=== PATIENT | male | born 1965 | race African-American/Black ===

== ENCOUNTER 2017-01-07 18:37 | Inpatient (IN) | payer MEDICAID ==
[~2017-01-07] VITALS: Ht 162.6 cm; Wt 81.2 kg
[~2017-01-07 18:37] MED LIST: ATEN-60 PO; CARI-316 PO; FER300LQ GT; GABA-497 PO; LANS30CA63 PO; METO-169 PO; PRE5T PO; SODB650T PO; TACR1CAP19 OR
[2017-01-07] MEDS ORDERED: KETOROLAC TROMETH 60MG/2ML VIAL IM ONE (20:45)
[2017-01-07] MEDS ORDERED: SODIUM CHLORIDE 0.9% 1,000 ML IV ONE (22:58)
[2017-01-07] MEDS: NALOXONE HCL 0.4 MG/ML VIAL IV ONE (23:00)
[2017-01-08 00:17] LABS: Basophils # (auto) 0 uL; Basophils % (auto) 0.2 % (0.0-2.0); Eosinophils # (auto) 0 uL; Eosinophils % (auto) 0.2 % (0.0-7.0); Hemoglobin 8.7 g/dL (13.5-17.5); Lymphocytes # (auto) 2.1 uL; Mean Corpuscular Hemoglobin 28.4 pg (28.0-32.0); Mean Corpuscular Hgb Conc. 32.2 g/dL (32.0-36.0); Mean Corpuscular Volume 88.2 fL (80.0-100.0); Mean Platelet Volume 7.9 fL (7.4-10.4); Monocytes # (auto) 1.3 uL; Monocytes % (auto) 7.1 % (0.0-12.0); Neutrophils # (auto) 14.2 uL; Neutrophils % (auto) 80.5 % (37.0-80.0); Platelet Count (auto) 305 10^3/uL (140-450); Red Cell Distribution Width 15.2 % (11.6-16.0); SUSPECT SEE PRINTOUT; White Blood Cell 17.6 10^3/uL (4.4-10.8)
[2017-01-08 00:29] LABS: INR 0.9 (0.9-1.15); Partial Thromboplastin Time 20.8 sec (22.64-33.71); Prothrombin Time 9.8 sec (9.37-12.3)
[2017-01-08 00:36] LABS: Albumin 2.6 g/dL (3.4-5.0); BUN/Creatinine Ratio 12.9; Calcium 9.7 mg/dL (8.5-10.1)
[2017-01-08 00:38] LABS: Bilirubin, Total 0.4 mg/dL (0.2-1.0); Total Protein 6.7 g/dL (6.4-8.2)
[2017-01-08 00:39] LABS: Potassium 5.6 mmol/L (3.5-5.1)
[2017-01-08] MEDS ORDERED: ONDANSETRON HCL 4 MG/2 ML VIAL IV PRN (02:00)
[2017-01-08] MEDS ORDERED: SODIUM POLYSTYRENE SULF 15GM/60ML SUSP PO ONE (02:00)
[2017-01-08] MEDS ORDERED: ACETAMINOPHEN 500 MG TAB PO PRN (02:00)
[2017-01-08] MEDS ORDERED: METOPROLOL TARTRATE 1MG/1ML-5ML VIAL IV ONE (02:00)
[2017-01-08 08:45] VITALS: BP 159/105
[2017-01-08 09:00] VITALS: BP 159/105
[2017-01-08] MEDS: predniSONE 20 MG TAB PO SCH (09:43)
[2017-01-08] MEDS: METOPROLOL SUCCINATE XL 50 MG TAB PO SCH (09:44)
[2017-01-08] MEDS ORDERED: ATENOLOL 50 MG TAB PO SCH (10:00)
[2017-01-08 11:28] LABS: Basophils # (auto) 0 uL; Basophils % (auto) 0.2 % (0.0-2.0); CONDITION Y; DEFINITIVE SEE PRINTOUT; Eosinophils # (auto) 0.1 uL; Lymphocytes # (auto) 2.5 uL; Lymphocytes % (auto) 16.3 % (10.0-50.0); Mean Corpuscular Hgb Conc. 32.2 g/dL (32.0-36.0); Mean Corpuscular Volume 90.3 fL (80.0-100.0); Mean Platelet Volume 7.6 fL (7.4-10.4); Monocytes # (auto) 2.1 uL; Neutrophils # (auto) 10.4 uL; Neutrophils % (auto) 68.5 % (37.0-80.0); Platelet Count (auto) 321 10^3/uL (140-450); White Blood Cell 15.1 10^3/uL (4.4-10.8)
[2017-01-08] MEDS ORDERED: PRE5T PO (11:42)
[2017-01-08] MEDS ORDERED: NAPR-604 PO (11:44)
[2017-01-08 11:46] LABS: Albumin 2.6 g/dL (3.4-5.0); BUN/Creatinine Ratio 12.6; Calcium 9.7 mg/dL (8.5-10.1); Potassium 5.1 mmol/L (3.5-5.1)
[2017-01-08] MEDS ORDERED: TIZA4CAP7 PO (11:46)
[2017-01-08 11:48] LABS: Bilirubin, Total 0.4 mg/dL (0.2-1.0); Total Protein 6.7 g/dL (6.4-8.2)
[2017-01-08] MEDS: SOD CHL 0.45% 1,000 ML IV SCH (11:58)
[2017-01-08 13:00] VITALS: BP 147/98
[2017-01-08 17:00] VITALS: BP 146/107
[2017-01-08] MEDS: GABAPENTIN 300 MG CAP PO SCH (21:20)
[2017-01-08 21:47] VITALS: BP 138/99
[2017-01-09] VITALS (7 sets, daily range): BP systolic 126–155; BP diastolic 85–101
[2017-01-09 04:34] LABS: Urine RBC None Seen /hpf (0 - 3)
[2017-01-09 04:39] LABS: Urine Bilirubin Negative (Negative); Urine Blood Negative /uL (Negative); Urine Color Yellow (Yellow); Urine Glucose Normal (Normal); Urine Ketone Negative (Negative); Urine Nitrite Negative (Negative); Urine Urobilinogen Normal (Negative); Urine pH 7.5 (5.0-8.0)
[2017-01-09] MEDS: SOD CHL 0.45% 1,000 ML IV SCH ×3 (05:02→16:07)
[2017-01-09 06:24] LABS: Basophils # (auto) 0 uL; Basophils % (auto) 0.2 % (0.0-2.0); CONDITION Y; DEFINITIVE SEE PRINTOUT; Eosinophils # (auto) 0 uL; Eosinophils % (auto) 0.3 % (0.0-7.0); Hematocrit 22.6 % (41.0-53.0); Hemoglobin 7.7 g/dL (13.5-17.5); Lymphocytes # (auto) 1.8 uL; Lymphocytes % (auto) 14.4 % (10.0-50.0); Mean Corpuscular Hemoglobin 29.8 pg (28.0-32.0); Mean Corpuscular Hgb Conc. 34.2 g/dL (32.0-36.0); Mean Corpuscular Volume 87.3 fL (80.0-100.0); Mean Platelet Volume 7.3 fL (7.4-10.4); Monocytes # (auto) 1.3 uL; Monocytes % (auto) 9.8 % (0.0-12.0); Neutrophils # (auto) 9.6 uL; Neutrophils % (auto) 75.3 % (37.0-80.0); Platelet Count (auto) 336 10^3/uL (140-450); Red Cell Distribution Width 16.3 % (11.6-16.0); White Blood Cell 12.7 10^3/uL (4.4-10.8)
[2017-01-09 06:56] LABS: Albumin 2.3 g/dL (3.4-5.0); BUN/Creatinine Ratio 12.6; Calcium 9.4 mg/dL (8.5-10.1)
[2017-01-09 06:58] LABS: Bilirubin, Total 0.3 mg/dL (0.2-1.0); Total Protein 5.9 g/dL (6.4-8.2)
[2017-01-09] MEDS: HYDROcodone-ACET 5/325MG TAB PO PRN (07:10)
[2017-01-09 07:18] LABS: Potassium 5.6 mmol/L (3.5-5.1)
[2017-01-09] MEDS: MORPHINE SULF INJ 2 MG/ML SYRINGE 1ML IV PRN ×3 (08:57→20:34)
[2017-01-09] MEDS ORDERED: SODIUM POLYSTYRENE SULF 15GM/60ML SUSP PO ONE (10:15)
[2017-01-09] MEDS: amLODIPine BESYLATE 5 MG TAB PO SCH (10:29)
[2017-01-09] MEDS: METOPROLOL SUCCINATE XL 50 MG TAB PO SCH (10:29)
[2017-01-09] MEDS: TACROLIMUS 1 MG CAP PO SCH ×2 (10:37→22:09)
[2017-01-09] MEDS: predniSONE 20 MG TAB PO SCH (10:37)
[2017-01-09] MEDS: GABAPENTIN 300 MG CAP PO SCH (22:09)
[2017-01-10] VITALS (7 sets, daily range): BP systolic 110–145; BP diastolic 76–106
[2017-01-10] MEDS: MORPHINE SULF INJ 2 MG/ML SYRINGE 1ML IV PRN ×3 (01:33→16:54)
[2017-01-10] MEDS: SOD CHL 0.45% 1,000 ML IV SCH ×3 (04:58→23:20)
[2017-01-10 06:15] LABS: Albumin 2.5 g/dL (3.4-5.0); Bilirubin, Total 0.3 mg/dL (0.2-1.0); Calcium 9.8 mg/dL (8.5-10.1); Phosphorus 2.7 mg/dL (2.5-4.90); Potassium 4.6 mmol/L (3.5-5.1); Total Protein 6.3 g/dL (6.4-8.2)
[2017-01-10] MEDS: amLODIPine BESYLATE 5 MG TAB PO SCH (10:46)
[2017-01-10] MEDS: predniSONE 20 MG TAB PO SCH (10:46)
[2017-01-10] MEDS: METOPROLOL SUCCINATE XL 50 MG TAB PO SCH (10:47)
[2017-01-10] MEDS: TACROLIMUS 1 MG CAP PO SCH ×2 (10:47→21:37)
[2017-01-10] MEDS: HYDROcodone-ACET 5/325MG TAB PO PRN ×2 (14:46→21:37)
[2017-01-10] MEDS: GABAPENTIN 300 MG CAP PO SCH (21:36)
[2017-01-11] MEDS: MORPHINE SULF INJ 2 MG/ML SYRINGE 1ML IV PRN ×4 (00:41→20:14)
[2017-01-11 06:56] LABS: Basophils # (auto) 0 uL; Basophils % (auto) 0.3 % (0.0-2.0); CONDITION Y; DEFINITIVE SEE PRINTOUT; Eosinophils # (auto) 0 uL; Eosinophils % (auto) 0.2 % (0.0-7.0); Hematocrit 24.7 % (41.0-53.0); Hemoglobin 8.1 g/dL (13.5-17.5); Lymphocytes # (auto) 2.4 uL; Lymphocytes % (auto) 13.7 % (10.0-50.0); Mean Corpuscular Hemoglobin 28.5 pg (28.0-32.0); Mean Corpuscular Hgb Conc. 32.7 g/dL (32.0-36.0); Mean Platelet Volume 7.5 fL (7.4-10.4); Monocytes # (auto) 1.4 uL; Monocytes % (auto) 7.8 % (0.0-12.0); Neutrophils # (auto) 13.8 uL; Platelet Count (auto) 405 10^3/uL (140-450); Red Cell Distribution Width 16.6 % (11.6-16.0); White Blood Cell 17.7 10^3/uL (4.4-10.8)
[2017-01-11 07:24] LABS: Albumin 2.7 g/dL (3.4-5.0); BUN/Creatinine Ratio 13.6; Bilirubin, Total 0.3 mg/dL (0.2-1.0); Calcium 9.5 mg/dL (8.5-10.1); Total Protein 6.4 g/dL (6.4-8.2)
[2017-01-11 08:00] VITALS: BP 132/102
[2017-01-11] MEDS: SOD CHL 0.45% 1,000 ML IV SCH (08:30)
[2017-01-11 08:45] VITALS: BP 132/102
[2017-01-11] MEDS ORDERED: HYDROcodone-ACET 5/325MG TAB PO PRN (10:00)
[2017-01-11] MEDS: PANTOPRAZOLE 40 MG/10 ML VIAL IV SCH (10:08)
[2017-01-11] MEDS: TACROLIMUS 1 MG CAP PO SCH ×2 (10:08→20:14)
[2017-01-11] MEDS: amLODIPine BESYLATE 5 MG TAB PO SCH (10:08)
[2017-01-11] MEDS: predniSONE 20 MG TAB PO SCH (10:09)
[2017-01-11] MEDS: METOPROLOL SUCCINATE XL 50 MG TAB PO SCH (10:09)
[2017-01-11 13:00] VITALS: BP 117/82
[2017-01-11 16:55] VITALS: BP 98/70
[2017-01-11] MEDS: GABAPENTIN 300 MG CAP PO SCH (20:14)
[2017-01-11 22:56] VITALS: BP 109/76
[2017-01-12] MEDS: HYDROcodone-ACET 5/325MG TAB PO PRN ×2 (02:49→09:37)
[2017-01-12 05:49] VITALS: BP 102/79
[2017-01-12 06:50] LABS: CONDITION Y; DEFINITIVE SEE PRINTOUT; Hemoglobin 8.6 g/dL (13.5-17.5); Mean Corpuscular Hemoglobin 28.9 pg (28.0-32.0); Mean Corpuscular Hgb Conc. 33.3 g/dL (32.0-36.0); Mean Corpuscular Volume 86.8 fL (80.0-100.0); Mean Platelet Volume 7.6 fL (7.4-10.4); Platelet Count (auto) 484 10^3/uL (140-450); SUSPECT SEE PRINTOUT; White Blood Cell 21.9 10^3/uL (4.4-10.8)
[2017-01-12 06:58] LABS: Metamyelocytes % 0; Myelocytes % 0; Promyelocytes % 0; Reactive Lymphocytes 0
[2017-01-12 07:01] LABS: Albumin 2.8 g/dL (3.4-5.0); BUN/Creatinine Ratio 15.5; Calcium 9.9 mg/dL (8.5-10.1); Potassium 5.3 mmol/L (3.5-5.1)
[2017-01-12 07:04] LABS: Bilirubin, Total 0.3 mg/dL (0.2-1.0); Total Protein 6.5 g/dL (6.4-8.2)
[2017-01-12 07:06] LABS: Vitamin D-2 25-Hydroxy 7.2 ng/mL (.)
[2017-01-12 07:41] LABS: Platelet Estimate Increased
[2017-01-12 09:00] VITALS: BP 113/70
[2017-01-12] MEDS: predniSONE 20 MG TAB PO SCH (09:59)
[2017-01-12] MEDS: amLODIPine BESYLATE 5 MG TAB PO SCH (09:59)
[2017-01-12] MEDS: TACROLIMUS 1 MG CAP PO SCH (09:59)
[2017-01-12] MEDS: PANTOPRAZOLE 40 MG/10 ML VIAL IV SCH (10:00)
[2017-01-12] MEDS: METOPROLOL SUCCINATE XL 50 MG TAB PO SCH (10:00)
[2017-01-12 11:13] VITALS: BP 113/70
== END 2017-01-12 13:45 | disposition home or self-care (01) | DRG 347 ==
LOC: EDUNIT# 18:37 → EDBD 18:37 → ER 18:38 → TELE 18:39 → CENTRAL 01-08 08:19
PROVIDERS: ADMIT Nurse Practitioner Family; ATTEND Family Medicine
DX: S32.018A Other fracture of first lumbar vertebra, initial encounter for closed fracture (principal); E43 Unspecified severe protein-calorie malnutrition; E87.0 Hyperosmolality and hypernatremia; N18.6 End stage renal disease; N17.9 Acute kidney failure, unspecified; I12.0 Hypertensive chronic kidney disease with stage 5 chronic kidney disease or end stage renal disease; S22.078A Other fracture of T9-T10 vertebra, initial encounter for closed fracture; E87.5 Hyperkalemia; S22.088A Other fracture of T11-T12 vertebra, initial encounter for closed fracture; E87.6 Hypokalemia; D63.1 Anemia in chronic kidney disease; G89.29 Other chronic pain; E78.5 Hyperlipidemia, unspecified; K57.90 Diverticulosis of intestine, part unspecified, without perforation or abscess without bleeding; Z79.899 Other long term (current) drug therapy; Z87.11 Personal history of peptic ulcer disease; Z94.0 Kidney transplant status; Z88.8 Allergy status to other drugs, medicaments and biological substances; Z90.49 Acquired absence of other specified parts of digestive tract; Z71.89 Other specified counseling; Z68.30 Body mass index [BMI] 30.0-30.9, adult; V98.8XXA Other specified transport accidents, initial encounter; Y93.89 Activity, other specified; Y92.89 Other specified places as the place of occurrence of the external cause; Y99.8 Other external cause status
CPT/HCPCS: 36415; 70450; 71010; 72040; 72070; 72110; 80053; 80061; 80197; 80307; 81001; 82270; 82306; 82570; 82728; 83540; 83550; 83970; 84100; 84300; 84550; 85007; 85025; 85027; 85610; 85730; 87081; 87493; 96361; 96372; 96374; 96375; C9113; J1885; J7507

== ENCOUNTER 2017-05-22 14:28 | Inpatient (IN) | payer MEDICAID ==
[~2017-05-22] VITALS: Ht 165.1 cm; Wt 67.9 kg
[~2017-05-22 14:28] MED LIST changes: -GABA-497 PO; +GABA300C10 PO; +NAPR375T27 PO; +TIZA4CAP7 PO
[2017-05-22] MEDS ORDERED: SODIUM CHLORIDE 0.9% 1,000 ML IV ONE ×2 (18:24)
[2017-05-22] MEDS ORDERED: PIPERACILLIN-TAZOB 3.375GM 50 ML IV ONE (18:30)
[2017-05-22 18:55] LABS: Basophils # (auto) 0 uL; Basophils % (auto) 0.2 % (0.0-2.0); Eosinophils # (auto) 0.1 uL; Monocytes # (auto) 1.4 uL; Neutrophils # (auto) 7.4 uL; Nucleated Red Blood Cells % 0.1 %
[2017-05-22 18:56] LABS: Eosinophils % (auto) 1.2 % (0.0-7.0); Hematocrit 33.5 % (41.0-53.0); Hemoglobin 10.3 g/dL (13.5-17.5); Lymphocytes # (auto) 1.7 uL; Lymphocytes % (auto) 15.9 % (10.0-50.0); Mean Corpuscular Hemoglobin 25.9 pg (28.0-32.0); Mean Corpuscular Hgb Conc. 30.6 g/dL (32.0-36.0); Mean Corpuscular Volume 84.4 fL (80.0-100.0); Monocytes % (auto) 13.3 % (0.0-12.0); Neutrophils % (auto) 69.4 % (37.0-80.0); Platelet Count (auto) 434 10^3/uL (140-450); Red Blood Cells 3.96 10^6/uL (4.5-5.90); White Blood Cell 10.7 10^3/uL (4.4-10.8)
[2017-05-22] MEDS: SODIUM CHLORIDE 0.9% 1,000 ML IV SCH (19:01)
[2017-05-22 19:02] LABS: Red Cell Distribution Width 20.2 % (11.8-14.3)
[2017-05-22] MEDS ORDERED: MORPHINE SULF INJ 2 MG/ML SYRINGE 1ML IV PRN (19:15)
[2017-05-22] MEDS ORDERED: ONDANSETRON HCL 4 MG/2 ML VIAL IV PRN (19:15)
[2017-05-22] MEDS ORDERED: TEMAZEPAM 15 MG CAP PO PRN (19:15)
[2017-05-22] MEDS ORDERED: HYDROcodone-ACET 5/325MG TAB PO PRN (19:15)
[2017-05-22] MEDS ORDERED: ACETAMINOPHEN 325 MG TAB PO PRN (19:15)
[2017-05-22] MEDS ORDERED: NITROGLYCERIN 0.4 MG SL TAB SL PRN (19:15)
[2017-05-22] MEDS ORDERED: DOCUSATE SOD 100 MG CAP PO PRN (19:15)
[2017-05-22 19:26] LABS: Anion Gap 6 (5-15); Carbon Dioxide 27 mmol/L (21-32); Chloride 108 mmol/L (98-107); Potassium 5.5 mmol/L (3.5-5.1); Sodium 141 mmol/L (136-145)
[2017-05-22 19:27] LABS: Alanine Aminotransferase 10 U/L (16-61); Alkaline Phosphatase 165 U/L (45-117); Aspartate Aminotransferase 7 U/L (15-37); BUN/Creatinine Ratio 9.7; Bilirubin, Total 0.4 mg/dL (0.2-1.0); Blood Urea Nitrogen 39 mg/dL (7-18); GFR African American 20 mL/min; GFR Non-African American 17 mL/min; Glucose 88 mg/dL (74-106); Total Protein 7.4 g/dL (6.4-8.2)
[2017-05-22 19:28] LABS: Albumin 2.6 g/dL (3.4-5.0); Lipase 1094 U/L (73-393)
[2017-05-22] MEDS ORDERED: NAPROXEN 500 MG TAB PO PRN (19:30)
[2017-05-22] MEDS ORDERED: SODIUM POLYSTYRENE SULF 15GM/60ML SUSP PO ONE (19:45)
[2017-05-22] MEDS ORDERED: ALPRAZolam 0.25 MG TAB PO PRN (19:45)
[2017-05-22] MEDS: MORPHINE SULF INJ 2 MG/ML SYRINGE 1ML IV PRN (20:00)
[2017-05-22] MEDS ORDERED: cloNIDine HCL 0.1 MG TAB PO PRN (20:00)
[2017-05-22 21:00] VITALS: BP 148/93
[2017-05-22 21:31] VITALS: BP 148/93
[2017-05-22] MEDS: TIZANIDINE 4MG PO SCH (22:00)
[2017-05-22] MEDS ORDERED: METOPROLOL SUCCINATE XL 50 MG TAB PO SCH (22:00)
[2017-05-22] MEDS: PANTOPRAZOLE 40 MG/10 ML VIAL IV SCH (22:17)
[2017-05-22] MEDS: SODIUM BICARBONATE 650 MG TAB PO SCH (22:17)
[2017-05-22] MEDS: METOPROLOL TARTRATE 50 MG TAB PO SCH (22:37)
[2017-05-22] MEDS: TACROLIMUS 1 MG CAP PO SCH (22:38)
[2017-05-22] MEDS: GABAPENTIN 300 MG CAP PO SCH (22:38)
[2017-05-22] MEDS: FAMOTIDINE 20 MG TAB PO SCH (22:38)
[2017-05-23 04:33] VITALS: BP 130/89
[2017-05-23] MEDS ORDERED: RANI-229 PO (05:06)
[2017-05-23] MEDS ORDERED: PANT1INJ3 PO (05:06)
[2017-05-23 05:14] LABS: Urine WBC None Seen /hpf (0 - 3)
[2017-05-23 05:29] LABS: Urine Bacteria NONE SEEN /hpf (None Seen); Urine Blood Negative /uL (Negative); Urine Specific Gravity 1.013 (1.001-1.035)
[2017-05-23] MEDS: TIZANIDINE 4MG PO SCH ×3 (06:00→21:33)
[2017-05-23 06:45] LABS: Basophils # (auto) 0 uL; Basophils % (auto) 0.5 % (0.0-2.0); Eosinophils # (auto) 0.3 uL; Hemoglobin 10.4 g/dL (13.5-17.5); Lymphocytes # (auto) 1.5 uL; Lymphocytes % (auto) 17.1 % (10.0-50.0); Monocytes # (auto) 1.3 uL
[2017-05-23 06:47] LABS: Eosinophils % (auto) 3.4 % (0.0-7.0); Hematocrit 33.6 % (41.0-53.0); Mean Corpuscular Hemoglobin 26.2 pg (28.0-32.0); Mean Corpuscular Hgb Conc. 31.1 g/dL (32.0-36.0); Mean Corpuscular Volume 84.3 fL (80.0-100.0); Monocytes % (auto) 14.4 % (0.0-12.0); Neutrophils # (auto) 5.7 uL; Neutrophils % (auto) 64.6 % (37.0-80.0); Platelet Count (auto) 425 10^3/uL (140-450); Red Blood Cells 3.98 10^6/uL (4.5-5.90); Red Cell Distribution Width 19.8 % (11.8-14.3); White Blood Cell 8.9 10^3/uL (4.4-10.8)
[2017-05-23 06:55] LABS: INR 0.98 (0.9-1.15); Prothrombin Time 10.7 sec (9.37-12.3)
[2017-05-23 07:21] LABS: Albumin 2.6 g/dL (3.4-5.0); BUN/Creatinine Ratio 9.7; Bilirubin, Total 0.5 mg/dL (0.2-1.0); Calcium 10.2 mg/dL (8.5-10.1); Potassium 5.2 mmol/L (3.5-5.1); Total Protein 6.9 g/dL (6.4-8.2)
[2017-05-23] MEDS: SODIUM CHLORIDE 0.9% 1,000 ML IV SCH ×2 (07:41→21:44)
[2017-05-23] MEDS: MORPHINE SULF INJ 2 MG/ML SYRINGE 1ML IV PRN ×2 (07:41→21:52)
[2017-05-23 08:00] VITALS: BP 158/82
[2017-05-23] MEDS: FERROUS SULFATE 325 MG TAB PO SCH ×3 (08:32→18:06)
[2017-05-23] MEDS: BOOST PLUS 8 ounce PO SCH ×3 (08:32→18:06)
[2017-05-23] MEDS: predniSONE 20 MG TAB PO SCH (08:32)
[2017-05-23] MEDS: SODIUM BICARBONATE 650 MG TAB PO SCH ×2 (08:33→21:43)
[2017-05-23] MEDS: MULTIPLE VITAMIN TAB PO SCH (08:33)
[2017-05-23] MEDS: FAMOTIDINE 20 MG TAB PO SCH ×2 (08:33→21:43)
[2017-05-23] MEDS: TACROLIMUS 1 MG CAP PO SCH ×2 (08:33→21:43)
[2017-05-23] MEDS: PANTOPRAZOLE 40 MG/10 ML VIAL IV SCH ×2 (08:45→21:42)
[2017-05-23] MEDS: METOPROLOL TARTRATE 50 MG TAB PO SCH ×2 (08:45→21:44)
[2017-05-23 09:41] VITALS: BP 158/97
[2017-05-23 13:00] VITALS: BP 155/110
[2017-05-23 16:57] VITALS: BP 144/96
[2017-05-23] MEDS: GABAPENTIN 300 MG CAP PO SCH (21:43)
[2017-05-23 22:00] VITALS: BP 120/83
[2017-05-24] MEDS: TIZANIDINE 4MG PO SCH ×3 (04:49→21:23)
[2017-05-24 05:00] VITALS: BP 122/90
[2017-05-24 07:30] VITALS: BP 158/97
[2017-05-24 09:00] VITALS: BP 153/103
[2017-05-24 10:26] LABS: Basophils # (auto) 0 uL; Eosinophils # (auto) 0.2 uL; Hemoglobin 11.2 g/dL (13.5-17.5)
[2017-05-24 10:28] LABS: Basophils % (auto) 0.2 % (0.0-2.0); Eosinophils % (auto) 1.4 % (0.0-7.0); Hematocrit 36.6 % (41.0-53.0); Lymphocytes # (auto) 1.8 uL; Lymphocytes % (auto) 14.8 % (10.0-50.0); Mean Corpuscular Hemoglobin 25.9 pg (28.0-32.0); Mean Corpuscular Hgb Conc. 30.4 g/dL (32.0-36.0); Monocytes % (auto) 8.4 % (0.0-12.0); Neutrophils # (auto) 8.9 uL; Neutrophils % (auto) 75.2 % (37.0-80.0); Platelet Count (auto) 482 10^3/uL (140-450); Red Blood Cells 4.31 10^6/uL (4.5-5.90); Red Cell Distribution Width 19.6 % (11.8-14.3); White Blood Cell 11.8 10^3/uL (4.4-10.8)
[2017-05-24 10:54] LABS: BUN/Creatinine Ratio 8.7; Calcium 10.3 mg/dL (8.5-10.1); Potassium 5.3 mmol/L (3.5-5.1)
[2017-05-24 10:55] LABS: Albumin 2.6 g/dL (3.4-5.0); Bilirubin, Total 0.3 mg/dL (0.2-1.0); Total Protein 7.1 g/dL (6.4-8.2)
[2017-05-24] MEDS: METOPROLOL TARTRATE 50 MG TAB PO SCH ×2 (11:11→21:23)
[2017-05-24] MEDS: predniSONE 20 MG TAB PO SCH (11:11)
[2017-05-24] MEDS: SODIUM BICARBONATE 650 MG TAB PO SCH ×2 (11:11→21:23)
[2017-05-24] MEDS: BOOST PLUS 8 ounce PO SCH ×3 (11:12→18:00)
[2017-05-24] MEDS: MULTIPLE VITAMIN TAB PO SCH (11:12)
[2017-05-24] MEDS: FAMOTIDINE 20 MG TAB PO SCH ×2 (11:12→21:23)
[2017-05-24] MEDS: PANTOPRAZOLE 40 MG/10 ML VIAL IV SCH ×2 (11:12→21:22)
[2017-05-24] MEDS: FERROUS SULFATE 325 MG TAB PO SCH ×3 (11:31→18:00)
[2017-05-24] MEDS: TACROLIMUS 1 MG CAP PO SCH ×2 (11:31→21:23)
[2017-05-24 14:06] VITALS: BP 148/91
[2017-05-24 17:00] VITALS: BP 151/102
[2017-05-24] MEDS: MORPHINE SULF INJ 2 MG/ML SYRINGE 1ML IV PRN (20:46)
[2017-05-24] MEDS: SODIUM CHLORIDE 0.9% 1,000 ML IV SCH (20:46)
[2017-05-24] MEDS: GABAPENTIN 300 MG CAP PO SCH (21:22)
[2017-05-24 22:02] VITALS: BP 133/101
[2017-05-25 05:13] VITALS: BP 142/87
[2017-05-25] MEDS: TIZANIDINE 4MG PO SCH (06:00)
[2017-05-25 06:34] LABS: Basophils # (auto) 0 uL; Basophils % (auto) 0.2 % (0.0-2.0); Eosinophils # (auto) 0.1 uL; Eosinophils % (auto) 0.6 % (0.0-7.0); Lymphocytes % (auto) 18.9 % (10.0-50.0); Monocytes # (auto) 0.8 uL; Monocytes % (auto) 7.3 % (0.0-12.0); Neutrophils # (auto) 7.7 uL
[2017-05-25 06:38] LABS: Hematocrit 33.3 % (41.0-53.0); Hemoglobin 10.3 g/dL (13.5-17.5); Mean Corpuscular Hemoglobin 26.3 pg (28.0-32.0); Mean Corpuscular Hgb Conc. 30.9 g/dL (32.0-36.0); Platelet Count (auto) 481 10^3/uL (140-450); Red Blood Cells 3.92 10^6/uL (4.5-5.90); Red Cell Distribution Width 19.6 % (11.8-14.3); White Blood Cell 10.6 10^3/uL (4.4-10.8)
[2017-05-25 06:53] LABS: Albumin 2.4 g/dL (3.4-5.0); BUN/Creatinine Ratio 7.7; Bilirubin, Total 0.4 mg/dL (0.2-1.0); Calcium 9.5 mg/dL (8.5-10.1); Total Protein 6.5 g/dL (6.4-8.2)
[2017-05-25 07:04] LABS: Potassium 5.6 mmol/L (3.5-5.1)
[2017-05-25] MEDS: PANTOPRAZOLE 40 MG/10 ML VIAL IV SCH (08:50)
[2017-05-25] MEDS: TACROLIMUS 1 MG CAP PO SCH (08:51)
[2017-05-25] MEDS: predniSONE 20 MG TAB PO SCH (08:51)
[2017-05-25] MEDS: MULTIPLE VITAMIN TAB PO SCH (08:52)
[2017-05-25] MEDS: FERROUS SULFATE 325 MG TAB PO SCH (08:52)
[2017-05-25] MEDS: BOOST PLUS 8 ounce PO SCH (08:52)
[2017-05-25] MEDS: SODIUM BICARBONATE 650 MG TAB PO SCH (08:52)
[2017-05-25] MEDS: FAMOTIDINE 20 MG TAB PO SCH (08:52)
[2017-05-25] MEDS: METOPROLOL TARTRATE 50 MG TAB PO SCH (08:52)
[2017-05-25 09:00] VITALS: BP 161/112
[2017-05-25 11:21] VITALS: BP 153/95
[2017-05-25 11:45] VITALS: BP 153/95
== END 2017-05-25 13:15 | disposition home or self-care (01) | DRG 470 ==
LOC: ER 14:28 → WEST WING 14:29 → TELE-WESTW 05-24 00:02
PROVIDERS: ADMIT Internal Medicine; ATTEND Internal Medicine
DX: I12.0 Hypertensive chronic kidney disease with stage 5 chronic kidney disease or end stage renal disease (principal); E43 Unspecified severe protein-calorie malnutrition; N17.9 Acute kidney failure, unspecified; K86.3 Pseudocyst of pancreas; K85.90 Acute pancreatitis without necrosis or infection, unspecified; N18.6 End stage renal disease; Z94.0 Kidney transplant status; E87.5 Hyperkalemia; K86.89 Other specified diseases of pancreas; K57.30 Diverticulosis of large intestine without perforation or abscess without bleeding; D63.1 Anemia in chronic kidney disease; E78.5 Hyperlipidemia, unspecified; G89.29 Other chronic pain; K27.9 Peptic ulcer, site unspecified, unspecified as acute or chronic, without hemorrhage or perforation; Z82.3 Family history of stroke; Z82.49 Family history of ischemic heart disease and other diseases of the circulatory system; Z87.11 Personal history of peptic ulcer disease; Z88.8 Allergy status to other drugs, medicaments and biological substances; Z90.49 Acquired absence of other specified parts of digestive tract; Z68.24 Body mass index [BMI] 24.0-24.9, adult
CPT/HCPCS: 36415; 74176; 80053; 81001; 82150; 83605; 83690; 84484; 85025; 85610; 87040; C9113; J2405; J2543; J7507

== ENCOUNTER 2017-07-27 12:30 | Inpatient (IN) | payer MEDICAID ==
[~2017-07-27] VITALS: Ht 162.6 cm; Wt 61.5 kg
[~2017-07-27 12:30] MED LIST changes: -CARI-316 PO; -LANS30CA63 PO; +PANT1INJ3 PO; +RANI-229 PO
[2017-07-27 13:33] LABS: Basophils # (auto) 0.1 uL; Eosinophils # (auto) 0.6 uL; Lymphocytes # (auto) 2.6 uL; Monocytes # (auto) 2.2 uL; Monocytes % (auto) 12.4 % (0.0-12.0)
[2017-07-27 13:36] LABS: Basophils % (auto) 0.6 % (0.0-2.0); Eosinophils % (auto) 3.4 % (0.0-7.0); Hematocrit 28.4 % (41.0-53.0); Hemoglobin 8.8 g/dL (13.5-17.5); Lymphocytes % (auto) 14.9 % (10.0-50.0); Mean Corpuscular Hemoglobin 25.3 pg (28.0-32.0); Mean Corpuscular Hgb Conc. 31.1 g/dL (32.0-36.0); Mean Corpuscular Volume 81.4 fL (80.0-100.0); Neutrophils % (auto) 68.7 % (37.0-80.0); Platelet Count (auto) 613 10^3/uL (140-450); Red Blood Cells 3.49 10^6/uL (4.5-5.90); Red Cell Distribution Width 22.5 % (11.8-14.3); White Blood Cell 17.5 10^3/uL (4.4-10.8)
[2017-07-27 13:45] LABS: Albumin 2.9 g/dL (3.4-5.0); BUN/Creatinine Ratio 12.2; Calcium 10.6 mg/dL (8.5-10.1); Potassium 4.3 mmol/L (3.5-5.1)
[2017-07-27 13:48] LABS: Bilirubin, Total 0.8 mg/dL (0.2-1.0); Total Protein 7.5 g/dL (6.4-8.2)
[2017-07-27 13:52] LABS: Urine Bacteria NONE SEEN /hpf (None Seen); Urine Blood Negative /uL (Negative); Urine Specific Gravity 1.012 (1.001-1.035); Urine WBC 1 /hpf (0 - 3)
[2017-07-27] MEDS ORDERED: SODIUM CHLORIDE 0.9% 500 ML IVB ONE (15:40)
[2017-07-27] MEDS ORDERED: PANTOPRAZOLE 40 MG/10 ML VIAL IV STA (15:40)
[2017-07-27] MEDS ORDERED: ONDANSETRON HCL 4 MG/2 ML VIAL IV ONE (15:45)
[2017-07-27] MEDS ORDERED: MORPHINE SULFATE 4 MG/ML SYR/VIAL IV ONE (15:45)
[2017-07-27] MEDS: SODIUM CHLORIDE 0.9% 1,000 ML IV SCH ×2 (17:17→23:57)
[2017-07-27] MEDS ORDERED: LACTULOSE 20Gm/30ML SOLN PO PRN (17:30)
[2017-07-27] MEDS ORDERED: NITROGLYCERIN 0.4 MG SL TAB SL PRN (17:30)
[2017-07-27] MEDS ORDERED: PROMETHAZINE HCL 25 MG/ML 1ML IV PRN (17:30)
[2017-07-27] MEDS ORDERED: cefTRIAXone 1GM/10ml IVPUSH 10 ML IV ONE (17:30)
[2017-07-27] MEDS ORDERED: MORPHINE SULFATE 4 MG/ML SYR/VIAL IV PRN ×2 (17:30)
[2017-07-27] MEDS ORDERED: LORazepam 2MG/ML-1ML VIAL IV PRN (17:30)
[2017-07-27] MEDS ORDERED: PANTOPRAZOLE 40 MG/10 ML VIAL IV ONE (17:30)
[2017-07-27 18:45] LABS: Hematocrit 28.1 % (41.0-53.0); Hemoglobin 8.6 g/dL (13.5-17.5)
[2017-07-27 22:00] VITALS: BP 127/88
[2017-07-27] MEDS: metroNIDAZOLE 500MG/100ML 100 ML IV SCH (22:51)
[2017-07-27] MEDS: MORPHINE SULFATE 4 MG/ML SYR/VIAL IV PRN (22:52)
[2017-07-28 00:59] LABS: Hematocrit 27.3 % (41.0-53.0); Hemoglobin 8.3 g/dL (13.5-17.5)
[2017-07-28] MEDS: MORPHINE SULFATE 4 MG/ML SYR/VIAL IV PRN ×2 (03:10→22:37)
[2017-07-28] MEDS: metroNIDAZOLE 500MG/100ML 100 ML IV SCH (05:11)
[2017-07-28 05:30] VITALS: BP 122/83
[2017-07-28 05:43] LABS: Eosinophils # (auto) 0.3 uL; Platelet Count (auto) 548 10^3/uL (140-450)
[2017-07-28 05:46] LABS: Basophils # (auto) 0 uL; Basophils % (auto) 0.2 % (0.0-2.0); Eosinophils % (auto) 1.9 % (0.0-7.0); Hematocrit 26.3 % (41.0-53.0); Hemoglobin 8.2 g/dL (13.5-17.5); Lymphocytes # (auto) 1.8 uL; Lymphocytes % (auto) 12.6 % (10.0-50.0); Mean Corpuscular Hemoglobin 25.7 pg (28.0-32.0); Mean Corpuscular Hgb Conc. 31.2 g/dL (32.0-36.0); Mean Corpuscular Volume 82.3 fL (80.0-100.0); Monocytes # (auto) 1.7 uL; Monocytes % (auto) 11.9 % (0.0-12.0); Neutrophils # (auto) 10.8 uL; Neutrophils % (auto) 73.4 % (37.0-80.0); White Blood Cell 14.7 10^3/uL (4.4-10.8)
[2017-07-28 05:51] LABS: Red Cell Distribution Width 22.6 % (11.8-14.3)
[2017-07-28 05:53] LABS: INR 1.08 (0.9-1.15); Partial Thromboplastin Time 34.4 sec (22.64-33.71); Prothrombin Time 11.8 sec (9.37-12.3)
[2017-07-28 06:00] LABS: Albumin 2.6 g/dL (3.4-5.0); BUN/Creatinine Ratio 11.7; Bilirubin, Total 0.7 mg/dL (0.2-1.0); Calcium 9.6 mg/dL (8.5-10.1); Potassium 4.6 mmol/L (3.5-5.1); Total Protein 6.4 g/dL (6.4-8.2)
[2017-07-28 06:08] LABS: Cholesterol 88 mg/dL (< 200); HDL Cholesterol 22 mg/dL (40-59); LDL Cholesterol 63 mg/dL (< 100); Triglycerides 109 mg/dL (< 150)
[2017-07-28 09:00] VITALS: BP 119/89
[2017-07-28] MEDS ORDERED: cefTRIAXone 1GM/10ml IVPUSH 10 ML IV SCH (09:00)
[2017-07-28] MEDS ORDERED: LIDOCAINE VISCOUS 2% 15ML UD ONE (09:16)
[2017-07-28] MEDS ORDERED: diphenhdrAMINE HCL 50 MG/1 ML VL ONE (09:16)
[2017-07-28] MEDS ORDERED: PANTOPRAZOLE 40 MG/10 ML VIAL IV SCH (10:00)
[2017-07-28] MEDS: fentaNYL CITRATE 100 MCG/2 ML VL ONE ×2 (10:33→10:37)
[2017-07-28] MEDS: MIDAZOLAM HCL 5 MG/ML-1ML VIAL ONE ×2 (10:33→10:37)
[2017-07-28 13:00] VITALS: BP 135/96
[2017-07-28] MEDS ORDERED: TACROLIMUS 0.5 MG CAP PO ONE (14:00)
[2017-07-28] MEDS ORDERED: predniSONE 5 MG TAB PO ONE (14:00)
[2017-07-28] MEDS ORDERED: TACROLIMUS 1 MG CAP PO ONE (14:00)
[2017-07-28] MEDS ORDERED: EPOETIN ALFA 10,000 UNIT/1 ML VIAL SC ONE (14:00)
[2017-07-28 17:00] VITALS: BP 123/94
[2017-07-28] MEDS: FERROUS SULFATE 325 MG TAB PO SCH (18:35)
[2017-07-28 20:00] VITALS: BP 128/93
[2017-07-28] MEDS: SODIUM CHLORIDE 0.9% 1,000 ML IV SCH (20:58)
[2017-07-28 21:48] VITALS: BP 128/93
[2017-07-28] MEDS ORDERED: GABAPENTIN 300 MG CAP PO SCH (22:00)
[2017-07-28] MEDS ORDERED: METOPROLOL SUCCINATE XL 50 MG TAB PO SCH (22:00)
[2017-07-28] MEDS: PANTOPRAZOLE 40 MG TAB PO SCH (22:31)
[2017-07-29] MEDS: SODIUM CHLORIDE 0.9% 1,000 ML IV SCH (03:58)
[2017-07-29 05:00] VITALS: BP 119/83
[2017-07-29 06:11] LABS: Basophils # (auto) 0.1 uL; Eosinophils # (auto) 0.4 uL; Lymphocytes # (auto) 1.2 uL; Neutrophils # (auto) 8.6 uL
[2017-07-29] MEDS: MORPHINE SULFATE 4 MG/ML SYR/VIAL IV PRN (06:16)
[2017-07-29 06:21] LABS: Basophils % (auto) 0.5 % (0.0-2.0); Eosinophils % (auto) 3.3 % (0.0-7.0); Hematocrit 25.8 % (41.0-53.0); Lymphocytes % (auto) 10.8 % (10.0-50.0); Mean Corpuscular Hemoglobin 25.9 pg (28.0-32.0); Mean Corpuscular Hgb Conc. 31.1 g/dL (32.0-36.0); Mean Corpuscular Volume 83.2 fL (80.0-100.0); Monocytes # (auto) 1.2 uL; Monocytes % (auto) 10.4 % (0.0-12.0); Nucleated Red Blood Cells % 0.1 %; Platelet Count (auto) 504 10^3/uL (140-450); White Blood Cell 11.5 10^3/uL (4.4-10.8)
[2017-07-29 06:27] LABS: BUN/Creatinine Ratio 10.7; Calcium 9.6 mg/dL (8.5-10.1); Potassium 4.5 mmol/L (3.5-5.1)
[2017-07-29 08:30] VITALS: BP 120/91
[2017-07-29] MEDS: FERROUS SULFATE 325 MG TAB PO SCH (08:34)
[2017-07-29] MEDS ORDERED: PANT40T PO (09:13)
[2017-07-29] MEDS ORDERED: SUCR1TAB38 OR (09:13)
[2017-07-29] MEDS ORDERED: predniSONE 5 MG TAB PO SCH (10:00)
[2017-07-29] MEDS ORDERED: TACROLIMUS 1 MG CAP PO SCH (10:00)
[2017-07-29] MEDS: PANTOPRAZOLE 40 MG TAB PO SCH (10:42)
[2017-07-29 12:42] VITALS: BP 140/90
== END 2017-07-29 12:51 | disposition home or self-care (01) | DRG 241 ==
LOC: ER 12:30 → TELE 12:31 → TELE-WESTW 20:00
PROVIDERS: ADMIT Internal Medicine; ATTEND Internal Medicine
PROC: 0DB68ZX Excision of Stomach, Via Natural or Artificial Opening Endoscopic, Diagnostic (ICD-10-PCS; principal; 2017-07-28 10:30)
DX: K29.80 Duodenitis without bleeding (principal); N18.4 Chronic kidney disease, stage 4 (severe); D62 Acute posthemorrhagic anemia; Z94.0 Kidney transplant status; K26.9 Duodenal ulcer, unspecified as acute or chronic, without hemorrhage or perforation; E78.5 Hyperlipidemia, unspecified; G89.29 Other chronic pain; I12.9 Hypertensive chronic kidney disease with stage 1 through stage 4 chronic kidney disease, or unspecified chronic kidney disease; K59.00 Constipation, unspecified; E16.2 Hypoglycemia, unspecified; K20.9 Esophagitis, unspecified; D63.8 Anemia in other chronic diseases classified elsewhere; M10.9 Gout, unspecified; E87.5 Hyperkalemia; Z82.49 Family history of ischemic heart disease and other diseases of the circulatory system; Z87.11 Personal history of peptic ulcer disease; Z80.9 Family history of malignant neoplasm, unspecified; Z82.3 Family history of stroke; Z88.8 Allergy status to other drugs, medicaments and biological substances; Z90.49 Acquired absence of other specified parts of digestive tract
CPT/HCPCS: 36415; 43239; 71045; 74176; 80048; 80053; 80061; 81001; 82150; 83690; 85014; 85018; 85025; 85045; 85610; 85652; 85730; 86141; 86850; 86900; 86901; 93005; 94761; 96365; 96375; C9113; J0885; J2250; J3490; J7507

== ENCOUNTER 2018-12-20 18:46 | Emergency (ER) | payer MEDICAID ==
[~2018-12-20] VITALS: Ht 162.6 cm; Wt 59.0 kg
[~2018-12-20 18:46] MED LIST changes: -ATEN-60 PO; -NAPR375T27 PO; +PANT40T PO; -RANI-229 PO; +SUCR1TAB38 OR
[2018-12-20] MEDS ORDERED: ONDANSETRON HCL 4 MG/2 ML VIAL ONE (19:22)
[2018-12-20] MEDS ORDERED: MORPHINE SULFATE 4 MG/ML SYR/VIAL ONE (19:22)
[2018-12-20] MEDS ORDERED: MORPHINE SULFATE 4 MG/ML SYR/VIAL IM ONE (19:30)
[2018-12-20] MEDS ORDERED: ONDANSETRON HCL 4 MG/2 ML VIAL IM ONE (19:30)
[2018-12-20 20:52] LABS: Basophils # (auto) 0 uL; Basophils % (auto) 0.3 % (0.0-2.0); Eosinophils # (auto) 0 uL; Eosinophils % (auto) 0.1 % (0.0-7.0); Hematocrit 36.4 % (41.0-53.0); Hemoglobin 11.7 g/dL (13.5-17.5); Lymphocytes % (auto) 10.7 % (10.0-50.0); Mean Corpuscular Hemoglobin 30.6 pg (28.0-32.0); Mean Corpuscular Hgb Conc. 32.2 g/dL (32.0-36.0); Mean Corpuscular Volume 95.2 fL (80.0-100.0); Monocytes # (auto) 0.7 uL; Monocytes % (auto) 7.4 % (0.0-12.0); Neutrophils # (auto) 7.7 uL; Neutrophils % (auto) 81.5 % (37.0-80.0); Platelet Count (auto) 226 10^3/uL (140-450); Red Blood Cells 3.82 10^6/uL (4.5-5.90); Red Cell Distribution Width 17.2 % (11.8-14.3); White Blood Cell 9.5 10^3/uL (4.4-10.8)
[2018-12-20] MEDS ORDERED: HYDROmorphone HCL 2 MG/ML VL IV ONE (21:00)
[2018-12-20] MEDS ORDERED: ONDANSETRON HCL 4 MG/2 ML VIAL IV ONE (21:00)
[2018-12-20] MEDS ORDERED: MORPHINE SULFATE 4 MG/ML SYR/VIAL IV ONE (21:00)
[2018-12-20 21:02] LABS: Albumin 3.5 g/dL (3.4-5.0); BUN/Creatinine Ratio 10.9; Calcium 9.1 mg/dL (8.5-10.1); Potassium 4.5 mmol/L (3.5-5.1)
[2018-12-20 21:08] LABS: INR < 0.93 (0.9-1.15); Partial Thromboplastin Time 26.1 sec (23.64-32.05)
[2018-12-20 21:11] LABS: Bilirubin, Total 0.6 mg/dL (0.2-1.0); Total Protein 6.5 g/dL (6.4-8.2)
[2018-12-20] MEDS ORDERED: LORazepam 2MG/ML-1ML VIAL IV ONE (21:45)
[2018-12-20] MEDS ORDERED: LIDOCAINE 1% HCL (LOCAL ANESTH.) INJ 20ML MDV ID ONE (21:45)
[2018-12-20] MEDS ORDERED: ETOMIDATE (2MG/ML) 20ML VIAL IV ONE ×2 (22:41→22:45)
[2018-12-20] MEDS ORDERED: NEOMYCIN-BACITRACIN-POLYM UNITDOSE PKG TOP OINT TOP ONE (22:45)
[2018-12-21 00:46] VITALS: BP 183/108
[2018-12-21] MEDS ORDERED: LIDOCAINE 2% (LOCAL ANESTH.) PF 5ml SDV ONE (00:50)
[2018-12-21] MEDS ORDERED: cefTRIAXone W LIDOCAINE 1 GM IM IM ONE (01:00)
[2018-12-21] MEDS ORDERED: LIDOCAINE 2% (LOCAL ANESTH.) PF 5ml SDV IJ ONE (01:00)
== END 2018-12-21 01:11 | disposition home or self-care (01) ==
LOC: ER 18:52
DX: S31.31XA Laceration without foreign body of scrotum and testes, initial encounter (principal); I12.9 Hypertensive chronic kidney disease with stage 1 through stage 4 chronic kidney disease, or unspecified chronic kidney disease; N18.9 Chronic kidney disease, unspecified; Z87.11 Personal history of peptic ulcer disease; Z79.899 Other long term (current) drug therapy; W07.XXXA Fall from chair, initial encounter; Y93.89 Activity, other specified; Y92.89 Other specified places as the place of occurrence of the external cause; Y99.8 Other external cause status
CPT/HCPCS: 12004; 36415; 76870; 80053; 85025; 85610; 85730; 96372; 96374; 96375; 99152; 99284; J0696; J1170; J2001; J2060; J2270; J2405; J7030

== ENCOUNTER 2019-09-02 15:34 | Inpatient (IN) | payer MEDICAID ==
[~2019-09-02] VITALS: Ht 165.1 cm; Wt 58.7 kg
[2019-09-02 16:17] LABS: Basophils # (auto) 0.1 10 ^3/uL (0-0.2); Basophils % (auto) 0.7 % (0.0-2.0); Eosinophils # (auto) 0.1 10 ^3/uL (0-0.8); Eosinophils % (auto) 0.4 % (0.0-7.0); Hematocrit 30.4 % (41.0-53.0); Hemoglobin 9.9 g/dL (13.5-17.5); Lymphocytes % (auto) 7.5 % (10.0-50.0); Mean Corpuscular Hemoglobin 31.8 pg (28.0-32.0); Mean Corpuscular Hgb Conc. 32.5 g/dL (32.0-36.0); Mean Corpuscular Volume 97.7 fL (80.0-100.0); Monocytes # (auto) 0.7 10 ^3/uL (0-1.3); Monocytes % (auto) 4.7 % (0.0-12.0); Neutrophils # (auto) 12.1 10 ^3/uL (1.6-8.6); Neutrophils % (auto) 86.7 % (37.0-80.0); Platelet Count (auto) 293 10^3/uL (140-450); Red Blood Cells 3.11 10^6/uL (4.5-5.90); Red Cell Distribution Width 18.1 % (11.8-14.3); White Blood Cell 13.9 10^3/uL (4.4-10.8)
[2019-09-02 16:35] LABS: Potassium 4.4 mmol/L (3.5-5.1); Uric Acid 6.9 mg/dL (3.5-7.2)
[2019-09-02 16:38] LABS: BUN/Creatinine Ratio 14.3; Bilirubin, Total 0.3 mg/dL (0.2-1.0); Total Protein 6.9 g/dL (6.4-8.2)
[2019-09-02] MEDS ORDERED: cefTRIAXone 1GM/50ML D5W 50 ML IV ONE (18:00)
[2019-09-02] MEDS ORDERED: ONDANSETRON HCL 4 MG/2 ML VIAL IV PRN (18:15)
[2019-09-02] MEDS ORDERED: ACETAMINOPHEN 500 MG TAB PO PRN (18:15)
[2019-09-02] MEDS ORDERED: MORPHINE SULF INJ 2 MG/ML SYRINGE 1ML IV PRN (18:15)
[2019-09-02] MEDS ORDERED: NITROGLYCERIN 0.4 MG SL TAB SL PRN (18:15)
[2019-09-02] MEDS: MORPHINE SULF INJ 2 MG/ML SYRINGE 1ML IV PRN (19:13)
[2019-09-02 20:30] VITALS: BP 149/86
[2019-09-02] MEDS: hydrALAZINE HCL 25 MG TAB PO SCH (21:47)
[2019-09-02] MEDS: METOPROLOL TARTRATE 50 MG TAB PO SCH (21:47)
[2019-09-02] MEDS: CLINDAMYCIN 300MG IV 50 ML IV SCH (21:48)
[2019-09-02] MEDS: TACROLIMUS 1 MG CAP PO SCH (21:56)
[2019-09-03] MEDS ORDERED: PRED-158 PO (00:23)
[2019-09-03] MEDS ORDERED: TACR1CAP4 PO (00:23)
[2019-09-03] MEDS ORDERED: ATOR20TA PO (00:23)
[2019-09-03] MEDS ORDERED: CHOL20007 OR (00:23)
[2019-09-03] MEDS ORDERED: LISI40TA PO (00:23)
[2019-09-03] MEDS ORDERED: OXY20CRT PO (00:23)
[2019-09-03] MEDS: MORPHINE SULF INJ 2 MG/ML SYRINGE 1ML IV PRN ×4 (02:05→19:47)
[2019-09-03 05:03] VITALS: BP 137/81
[2019-09-03] MEDS: hydrALAZINE HCL 25 MG TAB PO SCH ×3 (05:17→21:19)
[2019-09-03] MEDS: CLINDAMYCIN 300MG IV 50 ML IV SCH ×3 (05:18→21:20)
[2019-09-03 06:30] LABS: Basophils # (auto) 0 10 ^3/uL (0-0.2); Basophils % (auto) 0.2 % (0.0-2.0); Eosinophils # (auto) 0.1 10 ^3/uL (0-0.8); Eosinophils % (auto) 0.7 % (0.0-7.0); Hematocrit 28.8 % (41.0-53.0); Hemoglobin 9.5 g/dL (13.5-17.5); Lymphocytes # (auto) 1.8 10 ^3/uL (0.4-5.4); Lymphocytes % (auto) 16.8 % (10.0-50.0); Mean Corpuscular Hemoglobin 32.1 pg (28.0-32.0); Mean Corpuscular Volume 97.4 fL (80.0-100.0); Monocytes % (auto) 9.4 % (0.0-12.0); Neutrophils # (auto) 7.7 10 ^3/uL (1.6-8.6); Neutrophils % (auto) 72.9 % (37.0-80.0); Platelet Count (auto) 271 10^3/uL (140-450); Red Blood Cells 2.95 10^6/uL (4.5-5.90); Red Cell Distribution Width 17.9 % (11.8-14.3); White Blood Cell 10.6 10^3/uL (4.4-10.8)
[2019-09-03 06:37] LABS: Potassium 3.9 mmol/L (3.5-5.1)
[2019-09-03 06:46] LABS: BUN/Creatinine Ratio 14.5; Calcium 8.8 mg/dL (8.5-10.1); Phosphorus 7.2 mg/dL (2.5-4.90)
[2019-09-03 08:33] VITALS: BP 150/73
[2019-09-03] MEDS: cefTRIAXone 1GM/50ML D5W 50 ML IV SCH (09:09)
[2019-09-03] MEDS: FAMOTIDINE 20 MG TAB PO SCH (09:57)
[2019-09-03] MEDS: predniSONE 5 MG TAB PO SCH (09:57)
[2019-09-03] MEDS: METOPROLOL TARTRATE 50 MG TAB PO SCH ×2 (09:57→21:19)
[2019-09-03] MEDS: TACROLIMUS 1 MG CAP PO SCH ×2 (09:58→21:19)
[2019-09-03 12:58] VITALS: BP 132/81
[2019-09-03 16:06] LABS: Urine WBC None Seen /hpf (0 - 3)
[2019-09-03 16:47] LABS: Urine Bacteria NONE SEEN /hpf (None Seen); Urine Blood Negative /uL (Negative); Urine Specific Gravity 1.009 (1.001-1.035)
[2019-09-03 17:01] VITALS: BP 138/67
[2019-09-03] MEDS: HYDROcodone-ACET 5/325MG TAB PO PRN (21:29)
[2019-09-03 21:47] VITALS: BP 134/77
[2019-09-04] MEDS: MORPHINE SULF INJ 2 MG/ML SYRINGE 1ML IV PRN ×5 (04:07→23:43)
[2019-09-04 04:43] VITALS: BP 145/99
[2019-09-04] MEDS: CLINDAMYCIN 300MG IV 50 ML IV SCH ×3 (05:00→21:32)
[2019-09-04] MEDS: hydrALAZINE HCL 25 MG TAB PO SCH ×3 (05:01→21:50)
[2019-09-04 06:49] LABS: Basophils # (auto) 0 10 ^3/uL (0-0.2); Basophils % (auto) 0.3 % (0.0-2.0); Eosinophils # (auto) 0.1 10 ^3/uL (0-0.8); Hematocrit 31.8 % (41.0-53.0); Hemoglobin 10.2 g/dL (13.5-17.5); Lymphocytes # (auto) 1.9 10 ^3/uL (0.4-5.4); Lymphocytes % (auto) 17.1 % (10.0-50.0); Mean Corpuscular Hemoglobin 31.3 pg (28.0-32.0); Mean Corpuscular Hgb Conc. 32.1 g/dL (32.0-36.0); Mean Corpuscular Volume 97.5 fL (80.0-100.0); Monocytes # (auto) 1.3 10 ^3/uL (0-1.3); Monocytes % (auto) 11.8 % (0.0-12.0); Neutrophils # (auto) 7.7 10 ^3/uL (1.6-8.6); Neutrophils % (auto) 69.8 % (37.0-80.0); Nucleated Red Blood Cells % 0.1 %; Platelet Count (auto) 294 10^3/uL (140-450); Red Blood Cells 3.26 10^6/uL (4.5-5.90); Red Cell Distribution Width 17.4 % (11.8-14.3)
[2019-09-04 07:06] LABS: BUN/Creatinine Ratio 13.7; Calcium 8.6 mg/dL (8.5-10.1); Potassium 3.8 mmol/L (3.5-5.1)
[2019-09-04] MEDS: predniSONE 5 MG TAB PO SCH (10:43)
[2019-09-04] MEDS: cefTRIAXone 1GM/50ML D5W 50 ML IV SCH (10:43)
[2019-09-04] MEDS: METOPROLOL TARTRATE 50 MG TAB PO SCH ×2 (10:44→21:43)
[2019-09-04] MEDS: FAMOTIDINE 20 MG TAB PO SCH (10:44)
[2019-09-04] MEDS: TACROLIMUS 1 MG CAP PO SCH ×2 (10:45→21:49)
[2019-09-04] MEDS: HYDROcodone-ACET 5/325MG TAB PO PRN ×2 (10:55→18:15)
[2019-09-04 21:49] VITALS: BP 140/94
[2019-09-05] MEDS: HYDROcodone-ACET 5/325MG TAB PO PRN (02:30)
[2019-09-05] MEDS: MORPHINE SULF INJ 2 MG/ML SYRINGE 1ML IV PRN ×4 (04:57→20:10)
[2019-09-05] MEDS: hydrALAZINE HCL 25 MG TAB PO SCH ×3 (04:57→21:47)
[2019-09-05] MEDS: CLINDAMYCIN 300MG IV 50 ML IV SCH ×3 (05:01→21:46)
[2019-09-05 05:54] VITALS: BP 137/85
[2019-09-05] MEDS: cefTRIAXone 1GM/50ML D5W 50 ML IV SCH (08:58)
[2019-09-05] MEDS: TACROLIMUS 1 MG CAP PO SCH ×2 (09:41→21:48)
[2019-09-05] MEDS: FAMOTIDINE 20 MG TAB PO SCH (09:41)
[2019-09-05] MEDS: predniSONE 5 MG TAB PO SCH (09:42)
[2019-09-05] MEDS: METOPROLOL TARTRATE 50 MG TAB PO SCH ×2 (09:42→21:47)
[2019-09-06] MEDS: HYDROcodone-ACET 5/325MG TAB PO PRN (04:56)
[2019-09-06] MEDS: CLINDAMYCIN 300MG IV 50 ML IV SCH ×2 (05:30→14:00)
[2019-09-06] MEDS: hydrALAZINE HCL 25 MG TAB PO SCH ×2 (05:31→14:00)
[2019-09-06 05:46] VITALS: BP 129/75
[2019-09-06 09:00] VITALS: BP 130/74
[2019-09-06] MEDS: FAMOTIDINE 20 MG TAB PO SCH (09:33)
[2019-09-06] MEDS: cefTRIAXone 1GM/50ML D5W 50 ML IV SCH (09:33)
[2019-09-06] MEDS: predniSONE 5 MG TAB PO SCH (09:34)
[2019-09-06] MEDS: METOPROLOL TARTRATE 50 MG TAB PO SCH (09:34)
[2019-09-06] MEDS: MORPHINE SULF INJ 2 MG/ML SYRINGE 1ML IV PRN (09:45)
[2019-09-06] MEDS: TACROLIMUS 1 MG CAP PO SCH (09:46)
[2019-09-06 09:50] LABS: Basophils # (auto) 0 10 ^3/uL (0-0.2); Basophils % (auto) 0.4 % (0.0-2.0); Eosinophils # (auto) 0.1 10 ^3/uL (0-0.8); Eosinophils % (auto) 1.3 % (0.0-7.0); Hematocrit 36.1 % (41.0-53.0); Hemoglobin 11.3 g/dL (13.5-17.5); Lymphocytes # (auto) 2.4 10 ^3/uL (0.4-5.4); Mean Corpuscular Hemoglobin 30.6 pg (28.0-32.0); Mean Corpuscular Hgb Conc. 31.4 g/dL (32.0-36.0); Mean Corpuscular Volume 97.6 fL (80.0-100.0); Monocytes # (auto) 1.6 10 ^3/uL (0-1.3); Monocytes % (auto) 14.4 % (0.0-12.0); Neutrophils # (auto) 7.2 10 ^3/uL (1.6-8.6); Neutrophils % (auto) 62.9 % (37.0-80.0); Nucleated Red Blood Cells % 0.1 %; Platelet Count (auto) 320 10^3/uL (140-450); Red Cell Distribution Width 17.2 % (11.8-14.3); White Blood Cell 11.4 10^3/uL (4.4-10.8)
[2019-09-06 10:03] LABS: INR 0.96 (0.9-1.15); Partial Thromboplastin Time 28.9 sec (23.64-32.05)
[2019-09-06 10:04] LABS: Potassium 3.5 mmol/L (3.5-5.1)
[2019-09-06] MEDS ORDERED: SEVELAMER 800 MG TAB PO SCH (12:00)
[2019-09-06 13:00] VITALS: BP 128/86
[2019-09-06 14:01] VITALS: BP 128/86
[2019-09-06] MEDS ORDERED: DOXY-346 PO (17:06)
[2019-09-06] MEDS ORDERED: ATOR20TA PO (17:06)
[2019-09-06] MEDS ORDERED: ASP81EC PO (17:06)
[2019-09-06] MEDS ORDERED: ATORVASTATIN 20 MG TAB PO SCH (22:00)
[2019-09-07] MEDS ORDERED: ASPirin 81 mg TAB PO SCH (10:00)
== END 2019-09-06 11:58 | disposition home or self-care (01) | DRG 383 ==
LOC: ER 15:34 → TELE 15:35 → TELE-WESTW 20:25
PROVIDERS: ADMIT Nurse Practitioner Acute Care; ATTEND Hospitalist
DX: L03.031 Cellulitis of right toe (principal); T86.19 Other complication of kidney transplant; E87.2 Acidosis; I12.0 Hypertensive chronic kidney disease with stage 5 chronic kidney disease or end stage renal disease; E83.39 Other disorders of phosphorus metabolism; M84.48XA Pathological fracture, other site, initial encounter for fracture; I73.9 Peripheral vascular disease, unspecified; N18.6 End stage renal disease; D72.829 Elevated white blood cell count, unspecified; M47.816 Spondylosis without myelopathy or radiculopathy, lumbar region; D64.9 Anemia, unspecified; M81.0 Age-related osteoporosis without current pathological fracture; Y83.0 Surgical operation with transplant of whole organ as the cause of abnormal reaction of the patient, or of later complication, without mention of misadventure at the time of the procedure; E78.5 Hyperlipidemia, unspecified; Z82.3 Family history of stroke; Z82.49 Family history of ischemic heart disease and other diseases of the circulatory system; Z87.11 Personal history of peptic ulcer disease; Z90.49 Acquired absence of other specified parts of digestive tract
CPT/HCPCS: 36415; 72100; 73700; 76775; 80048; 80053; 80197; 81001; 82306; 82570; 84100; 84156; 84166; 84300; 84550; 85025; 85610; 85652; 85730; 87040; 93306; 93926; 97163; G0378; J0696; J3490; J7507

== ENCOUNTER 2020-08-19 21:29 | Inpatient (IN) | payer MEDICAID ==
[~2020-08-19] VITALS: Ht 121.9 cm; Wt 58.6 kg
[~2020-08-19 21:29] MED LIST changes: +ASPI-394 PO; +ATOR20TA PO; +CHOL20007 OR; +DOXY-346 PO; +LISI40TA11 PO; +OXY20CRT PO; -PRE5T PO; +PRED10TA PO; +SUCR1TAB22 OR; -SUCR1TAB38 OR; -TACR1CAP19 OR; +TACR1CAP4 PO
[2020-08-19] MEDS ORDERED: HYDROcodone-ACET 5/325MG TAB PO ONE (23:30)
[2020-08-20] MEDS ORDERED: MORPHINE SULF INJ 2 MG/ML SYRINGE 1ML ONE (05:45)
[2020-08-20] MEDS ORDERED: MORPHINE SULFATE 10 MG/ML INJ 1ML SDV IV ONE (05:45)
[2020-08-20] MEDS ORDERED: MORPHINE SULFATE 4 MG/ML SYR/VIAL ONE (05:45)
[2020-08-20] MEDS ORDERED: diphenhdrAMINE HCL 25 MG CAP PO ONE (07:00)
[2020-08-20] MEDS ORDERED: HYDROcodone-ACET 5/325MG TAB PO ONE (07:00)
[2020-08-20 08:13] LABS: Basophils # (auto) 0 10 ^3/uL (0-0.2); Basophils % (auto) 0.4 % (0.0-2.0); Eosinophils # (auto) 0.2 10 ^3/uL (0-0.8); Hematocrit 31.5 % (41.0-53.0); Lymphocytes # (auto) 1.3 10 ^3/uL (0.4-5.4); Mean Corpuscular Hemoglobin 28.3 pg (28.0-32.0); Mean Corpuscular Hgb Conc. 31.8 g/dL (32.0-36.0); Mean Corpuscular Volume 88.9 fL (80.0-100.0); Monocytes # (auto) 1.2 10 ^3/uL (0-1.3); Monocytes % (auto) 10.7 % (0.0-12.0); Neutrophils # (auto) 8.7 10 ^3/uL (1.6-8.6); Neutrophils % (auto) 75.9 % (37.0-80.0); Platelet Count (auto) 235 10^3/uL (140-450); Red Blood Cells 3.54 10^6/uL (4.5-5.90); Red Cell Distribution Width 20.2 % (11.8-14.3); White Blood Cell 11.4 10^3/uL (4.4-10.8)
[2020-08-20 08:29] LABS: INR 1.04 (0.9-1.15); Partial Thromboplastin Time 31.8 sec (23.0-31.2)
[2020-08-20 08:30] LABS: Albumin 3.3 g/dL (3.4-5.0); BUN/Creatinine Ratio 5.3; Calcium 8.4 mg/dL (8.5-10.1); Potassium 4.3 mmol/L (3.5-5.1)
[2020-08-20 08:33] LABS: Bilirubin, Total 0.9 mg/dL (0.2-1.0); Total Protein 6.9 g/dL (6.4-8.2)
[2020-08-20] MEDS ORDERED: ONDANSETRON HCL 4 MG/2 ML VIAL IV PRN (10:15)
[2020-08-20] MEDS ORDERED: NITROGLYCERIN 0.4 MG SL TAB SL PRN (10:15)
[2020-08-20] MEDS ORDERED: MORPHINE SULF INJ 2 MG/ML SYRINGE 1ML IV PRN (10:15)
[2020-08-20] MEDS: HEPARIN SODIUM (PORCINE) 5000 UNITS/ML 1ML VIAL SC SCH ×2 (10:28→22:00)
[2020-08-20] MEDS: MORPHINE SULFATE 4 MG/ML SYR/VIAL IV PRN ×4 (10:34→22:34)
[2020-08-20] MEDS: diphenhdrAMINE HCL 12.5 MG/5 ML UD PO PRN ×2 (10:43→18:48)
[2020-08-20] MEDS: FERROUS SULFATE 300 MG/5 ML ORAL LIQ GT SCH ×2 (12:00→18:06)
[2020-08-20] MEDS: HYDROcodone-ACET 10/325MG TAB PO PRN (12:58)
[2020-08-20 13:00] VITALS: BP 157/107
[2020-08-20 17:00] VITALS: BP 148/98
[2020-08-20 22:00] VITALS: BP 149/102
[2020-08-20] MEDS: GABAPENTIN 300 MG CAP PO SCH (22:32)
[2020-08-20] MEDS: METOPROLOL SUCCINATE XL 50 MG TAB PO SCH (22:33)
[2020-08-21] MEDS: HYDROcodone-ACET 10/325MG TAB PO PRN (00:10)
[2020-08-21 05:00] VITALS: BP 108/72
[2020-08-21] MEDS ORDERED: SODIUM CHL 0.9% 1000 ML BAG XX ONE (07:00)
[2020-08-21 07:24] LABS: Basophils # (auto) 0.1 10 ^3/uL (0-0.2); Basophils % (auto) 0.3 % (0.0-2.0); Eosinophils # (auto) 0.4 10 ^3/uL (0-0.8); Eosinophils % (auto) 2.4 % (0.0-7.0); Hematocrit 29.4 % (41.0-53.0); Hemoglobin 9.4 g/dL (13.5-17.5); Lymphocytes # (auto) 1.3 10 ^3/uL (0.4-5.4); Lymphocytes % (auto) 7.2 % (10.0-50.0); Mean Corpuscular Hemoglobin 28.1 pg (28.0-32.0); Mean Corpuscular Volume 88.1 fL (80.0-100.0); Monocytes # (auto) 2.7 10 ^3/uL (0-1.3); Monocytes % (auto) 14.7 % (0.0-12.0); Neutrophils # (auto) 13.9 10 ^3/uL (1.6-8.6); Neutrophils % (auto) 75.4 % (37.0-80.0); Platelet Count (auto) 214 10^3/uL (140-450); Red Blood Cells 3.34 10^6/uL (4.5-5.90); Red Cell Distribution Width 19.9 % (11.8-14.3); White Blood Cell 18.4 10^3/uL (4.4-10.8)
[2020-08-21 07:36] LABS: BUN/Creatinine Ratio 5.6; Calcium 8.9 mg/dL (8.5-10.1); Magnesium 1.8 mg/dL (1.6-2.6)
[2020-08-21 08:00] VITALS: BP 121/79
[2020-08-21] MEDS ORDERED: ADENOSINE 54 MG in GIVE UN-DILUTED 0 ML IV STA (08:18)
[2020-08-21 08:41] VITALS: BP 121/79
[2020-08-21] MEDS: SODIUM BICARBONATE 650 MG TAB PO SCH (09:58)
[2020-08-21] MEDS: CHOLECALCIFEROL (VITD3) 2,000 UNIT CAP/TAB PO SCH (09:58)
[2020-08-21] MEDS: HEPARIN SODIUM (PORCINE) 5000 UNITS/ML 1ML VIAL SC SCH ×2 (09:59→22:00)
[2020-08-21] MEDS ORDERED: LISINOPRIL 20 MG TAB PO SCH (10:00)
[2020-08-21] MEDS: FERROUS SULFATE 300 MG/5 ML ORAL LIQ GT SCH ×3 (10:02→18:28)
[2020-08-21 12:39] VITALS: BP 110/45
[2020-08-21] MEDS: MORPHINE SULFATE 4 MG/ML SYR/VIAL IV PRN ×2 (14:08→21:16)
[2020-08-21 16:34] LABS: BUN/Creatinine Ratio 4.5; Calcium 8.8 mg/dL (8.5-10.1); Potassium 3.8 mmol/L (3.5-5.1)
[2020-08-21 16:39] VITALS: BP 95/77
[2020-08-21] MEDS ORDERED: EPOETIN ALFA-EPBX 10,000 UNIT/1ML VIAL SC ONE (21:00)
[2020-08-21 21:17] LABS: Urine Bacteria NONE SEEN /hpf (None Seen); Urine Blood Negative /uL (Negative); Urine Specific Gravity 1.012 (1.001-1.035); Urine WBC 2 /hpf (0 - 3)
[2020-08-21 22:00] VITALS: BP 97/63
[2020-08-21] MEDS: METOPROLOL SUCCINATE XL 50 MG TAB PO SCH (22:00)
[2020-08-21] MEDS: ATORVASTATIN 20 MG TAB PO SCH (22:07)
[2020-08-21] MEDS: GABAPENTIN 300 MG CAP PO SCH (22:07)
[2020-08-22 05:00] VITALS: BP 92/60
[2020-08-22 06:01] LABS: Basophils # (auto) 0.1 10 ^3/uL (0-0.2); Basophils % (auto) 0.4 % (0.0-2.0); Eosinophils # (auto) 0.6 10 ^3/uL (0-0.8); Eosinophils % (auto) 4.6 % (0.0-7.0); Hematocrit 27.3 % (41.0-53.0); Lymphocytes # (auto) 1.1 10 ^3/uL (0.4-5.4); Lymphocytes % (auto) 8.3 % (10.0-50.0); Mean Corpuscular Hemoglobin 28.6 pg (28.0-32.0); Mean Corpuscular Hgb Conc. 32.9 g/dL (32.0-36.0); Mean Corpuscular Volume 87.1 fL (80.0-100.0); Monocytes # (auto) 2.1 10 ^3/uL (0-1.3); Monocytes % (auto) 15.6 % (0.0-12.0); Neutrophils # (auto) 9.6 10 ^3/uL (1.6-8.6); Neutrophils % (auto) 71.1 % (37.0-80.0); Platelet Count (auto) 223 10^3/uL (140-450); Red Blood Cells 3.14 10^6/uL (4.5-5.90); Red Cell Distribution Width 19.7 % (11.8-14.3); White Blood Cell 13.5 10^3/uL (4.4-10.8)
[2020-08-22 06:07] LABS: Calcium 8.5 mg/dL (8.5-10.1); Potassium 4.7 mmol/L (3.5-5.1)
[2020-08-22 06:10] LABS: BUN/Creatinine Ratio 5.8
[2020-08-22] MEDS: MORPHINE SULFATE 4 MG/ML SYR/VIAL IV PRN ×2 (08:26→18:18)
[2020-08-22] MEDS: FERROUS SULFATE 300 MG/5 ML ORAL LIQ GT SCH ×3 (08:26→17:38)
[2020-08-22 09:00] VITALS: BP 100/57
[2020-08-22] MEDS: CHOLECALCIFEROL (VITD3) 2,000 UNIT CAP/TAB PO SCH (09:56)
[2020-08-22] MEDS: SODIUM BICARBONATE 650 MG TAB PO SCH (09:56)
[2020-08-22] MEDS: ASPirin 81 mg TAB PO SCH (09:56)
[2020-08-22] MEDS: HEPARIN SODIUM (PORCINE) 5000 UNITS/ML 1ML VIAL SC SCH ×2 (09:57→22:05)
[2020-08-22 13:00] VITALS: BP 96/63
[2020-08-22 17:00] VITALS: BP 108/77
[2020-08-22 22:00] VITALS: BP 92/69
[2020-08-22] MEDS: METOPROLOL SUCCINATE XL 50 MG TAB PO SCH (22:00)
[2020-08-22] MEDS: GABAPENTIN 300 MG CAP PO SCH (22:02)
[2020-08-22] MEDS: ATORVASTATIN 20 MG TAB PO SCH (22:02)
[2020-08-22] MEDS: HYDROcodone-ACET 10/325MG TAB PO PRN (22:03)
[2020-08-23] VITALS (63 sets, daily range): BP systolic 95–150; BP diastolic 53–111
[2020-08-23] MEDS: ACETAMINOPHEN 325 MG TAB PO PRN ×2 (00:26→22:04)
[2020-08-23] MEDS ORDERED: PIPERACILLIN-TAZOB 2.25GM 50 ML IV ONE (01:00)
[2020-08-23 01:33] LABS: Basophils # (auto) 0 10 ^3/uL (0-0.2); Mean Corpuscular Volume 86.4 fL (80.0-100.0); Monocytes # (auto) 2.1 10 ^3/uL (0-1.3)
[2020-08-23 01:35] LABS: Basophils % (auto) 0.4 % (0.0-2.0); Eosinophils # (auto) 0.7 10 ^3/uL (0-0.8); Eosinophils % (auto) 5.2 % (0.0-7.0); Hematocrit 24.6 % (41.0-53.0); Lymphocytes # (auto) 1.4 10 ^3/uL (0.4-5.4); Lymphocytes % (auto) 11.1 % (10.0-50.0); Mean Corpuscular Hemoglobin 28.2 pg (28.0-32.0); Mean Corpuscular Hgb Conc. 32.7 g/dL (32.0-36.0); Neutrophils # (auto) 8.8 10 ^3/uL (1.6-8.6); Neutrophils % (auto) 67.3 % (37.0-80.0); Nucleated Red Blood Cells % 0.1 %; Platelet Count (auto) 240 10^3/uL (140-450); Red Blood Cells 2.85 10^6/uL (4.5-5.90); Red Cell Distribution Width 19.4 % (11.8-14.3)
[2020-08-23 01:49] LABS: BUN/Creatinine Ratio 6.8; Calcium 8.1 mg/dL (8.5-10.1); Potassium 5.1 mmol/L (3.5-5.1)
[2020-08-23] MEDS ORDERED: PIPERACILLIN-TAZOB 2.25GM 50 ML IV SCH (06:00)
[2020-08-23] MEDS: FERROUS SULFATE 300 MG/5 ML ORAL LIQ GT SCH ×3 (08:14→18:19)
[2020-08-23] MEDS: HYDROcodone-ACET 10/325MG TAB PO PRN ×3 (08:19→22:05)
[2020-08-23] MEDS: MORPHINE SULFATE 4 MG/ML SYR/VIAL IV PRN (10:25)
[2020-08-23] MEDS: SODIUM BICARBONATE 650 MG TAB PO SCH (10:25)
[2020-08-23] MEDS: ASPirin 81 mg TAB PO SCH (10:25)
[2020-08-23] MEDS: CHOLECALCIFEROL (VITD3) 2,000 UNIT CAP/TAB PO SCH (10:25)
[2020-08-23] MEDS: HEPARIN SODIUM (PORCINE) 5000 UNITS/ML 1ML VIAL SC SCH ×2 (10:39→21:00)
[2020-08-23 13:32] LABS: Urine Bacteria NONE SEEN /hpf (None Seen); Urine Blood Negative /uL (Negative); Urine WBC <1 /hpf (0 - 3)
[2020-08-23] MEDS: diphenhdrAMINE HCL 12.5 MG/5 ML UD PO PRN (16:19)
[2020-08-23] MEDS: METOPROLOL SUCCINATE XL 50 MG TAB PO SCH (22:00)
[2020-08-23] MEDS: GABAPENTIN 300 MG CAP PO SCH (22:04)
[2020-08-23] MEDS: ATORVASTATIN 20 MG TAB PO SCH (22:04)
[2020-08-24] MEDS: diphenhdrAMINE HCL 12.5 MG/5 ML UD PO PRN (01:22)
[2020-08-24] MEDS: MORPHINE SULFATE 4 MG/ML SYR/VIAL IV PRN ×3 (04:02→14:53)
[2020-08-24 05:00] VITALS: BP 111/72
[2020-08-24 06:54] LABS: Basophils # (auto) 0 10 ^3/uL (0-0.2); Basophils % (auto) 0.3 % (0.0-2.0); Eosinophils # (auto) 0.8 10 ^3/uL (0-0.8); Eosinophils % (auto) 8.3 % (0.0-7.0); Hematocrit 26.3 % (41.0-53.0); Hemoglobin 8.7 g/dL (13.5-17.5); Lymphocytes # (auto) 0.8 10 ^3/uL (0.4-5.4); Lymphocytes % (auto) 9.1 % (10.0-50.0); Mean Corpuscular Hemoglobin 28.6 pg (28.0-32.0); Mean Corpuscular Hgb Conc. 32.9 g/dL (32.0-36.0); Mean Corpuscular Volume 86.8 fL (80.0-100.0); Monocytes # (auto) 1.4 10 ^3/uL (0-1.3); Monocytes % (auto) 15.4 % (0.0-12.0); Neutrophils # (auto) 6.2 10 ^3/uL (1.6-8.6); Neutrophils % (auto) 66.9 % (37.0-80.0); Platelet Count (auto) 265 10^3/uL (140-450); Red Blood Cells 3.03 10^6/uL (4.5-5.90); Red Cell Distribution Width 19.4 % (11.8-14.3); White Blood Cell 9.3 10^3/uL (4.4-10.8)
[2020-08-24 07:01] LABS: INR 1.04 (0.9-1.15); Partial Thromboplastin Time 40.3 sec (23.0-31.2)
[2020-08-24 07:15] VITALS: BP 123/90
[2020-08-24 07:18] LABS: BUN/Creatinine Ratio 7.2; Calcium 8.5 mg/dL (8.5-10.1); Magnesium 2.1 mg/dL (1.6-2.6)
[2020-08-24 07:22] LABS: Potassium 5.6 mmol/L (3.5-5.1)
[2020-08-24] MEDS ORDERED: IODIXANOL 320MG/ML 100ML BTL IV ONE (07:38)
[2020-08-24] MEDS ORDERED: LIDOCAINE 2%HCL (LOCAL ANESTH.) INJ 20ML MDV ONE (07:38)
[2020-08-24] MEDS: FERROUS SULFATE 300 MG/5 ML ORAL LIQ GT SCH ×3 (07:56→16:58)
[2020-08-24] MEDS ORDERED: ANGIOMAX 250 MG VIAL IV ONE (08:10)
[2020-08-24] MEDS ORDERED: MIDAZOLAM HCL 1MG/1ML-2 ML VIAL ONE (08:10)
[2020-08-24] MEDS ORDERED: fentaNYL CITRATE 100 MCG/2 ML VL ONE (08:10)
[2020-08-24] MEDS ORDERED: SODIUM CHL 0.9% 0 ML ONE (08:11)
[2020-08-24] MEDS ORDERED: HYDROmorphone HCL 2 MG/ML VL ONE (08:55)
[2020-08-24] MEDS: ASPirin 81 mg TAB PO SCH (10:00)
[2020-08-24] MEDS: HEPARIN SODIUM (PORCINE) 5000 UNITS/ML 1ML VIAL SC SCH ×2 (10:00→20:14)
[2020-08-24] MEDS: CHOLECALCIFEROL (VITD3) 2,000 UNIT CAP/TAB PO SCH (10:00)
[2020-08-24] MEDS: SODIUM BICARBONATE 650 MG TAB PO SCH (10:00)
[2020-08-24] MEDS ORDERED: SODIUM CHL 0.9% 1000 ML BAG XX ONE (12:30)
[2020-08-24] MEDS: HYDROcodone-ACET 10/325MG TAB PO PRN ×2 (16:58→22:18)
[2020-08-24 17:05] VITALS: BP 135/87
[2020-08-24] MEDS: GABAPENTIN 300 MG CAP PO SCH (20:13)
[2020-08-24] MEDS: ATORVASTATIN 20 MG TAB PO SCH (20:13)
[2020-08-24] MEDS ORDERED: EPOETIN ALFA-EPBX 10,000 UNIT/1ML VIAL SC ONE (21:00)
[2020-08-24 22:00] VITALS: BP 95/73
[2020-08-24] MEDS: METOPROLOL SUCCINATE XL 50 MG TAB PO SCH (22:00)
[2020-08-24] MEDS: ACETAMINOPHEN 325 MG TAB PO PRN (22:18)
[2020-08-24] MEDS ORDERED: SODIUM CHLORIDE 0.9% 1,000 ML IV ONE (23:45)
[2020-08-24] MEDS ORDERED: SODIUM CHLORIDE 0.9% 250 ML IV ONE (23:45)
[2020-08-25] MEDS: LOPERAMIDE HCL 2 MG CAP PO PRN (00:39)
[2020-08-25 05:00] VITALS: BP 131/76
[2020-08-25 07:06] LABS: Basophils # (auto) 0 10 ^3/uL (0-0.2); Eosinophils # (auto) 0.7 10 ^3/uL (0-0.8); Lymphocytes # (auto) 1.2 10 ^3/uL (0.4-5.4); Lymphocytes % (auto) 13.3 % (10.0-50.0); Monocytes # (auto) 1.5 10 ^3/uL (0-1.3)
[2020-08-25] MEDS ORDERED: ceFAZolin 1GM/50ML 100 ML IV ONE (07:09)
[2020-08-25 07:10] LABS: Basophils % (auto) 0.5 % (0.0-2.0); Eosinophils % (auto) 8.5 % (0.0-7.0); Hemoglobin 7.6 g/dL (13.5-17.5); Mean Corpuscular Hemoglobin 28.5 pg (28.0-32.0); Mean Corpuscular Volume 86.5 fL (80.0-100.0); Monocytes % (auto) 17.6 % (0.0-12.0); Neutrophils # (auto) 5.2 10 ^3/uL (1.6-8.6); Neutrophils % (auto) 60.1 % (37.0-80.0); Platelet Count (auto) 263 10^3/uL (140-450); Red Blood Cells 2.66 10^6/uL (4.5-5.90); Red Cell Distribution Width 19.1 % (11.8-14.3); White Blood Cell 8.7 10^3/uL (4.4-10.8)
[2020-08-25 07:30] LABS: BUN/Creatinine Ratio 6.8; Calcium 9.3 mg/dL (8.5-10.1); Magnesium 2.2 mg/dL (1.6-2.6); Potassium 4.9 mmol/L (3.5-5.1)
[2020-08-25] MEDS ORDERED: BUPIVACAINE 0.5% P/F INJ 10 ML VIAL ONE (07:30)
[2020-08-25] MEDS ORDERED: TETRACAINE 1% INJ 2 ML VIAL IJ ONE (07:33)
[2020-08-25] MEDS ORDERED: TRANEXAMIC ACID 10 ML ONE (07:54)
[2020-08-25] MEDS: FERROUS SULFATE 300 MG/5 ML ORAL LIQ GT SCH ×3 (08:00→18:14)
[2020-08-25] MEDS ORDERED: MIDAZOLAM HCL 1MG/1ML-2 ML VIAL ONE ×2 (08:04→09:17)
[2020-08-25] MEDS ORDERED: fentaNYL CITRATE 100 MCG/2 ML VL ONE ×2 (08:05→08:40)
[2020-08-25] MEDS: HEPARIN SODIUM (PORCINE) 5000 UNITS/ML 1ML VIAL SC SCH ×2 (08:42→22:03)
[2020-08-25] MEDS ORDERED: KETAMINE HCL 10 ML ONE ×2 (09:18→10:34)
[2020-08-25] MEDS: CHOLECALCIFEROL (VITD3) 2,000 UNIT CAP/TAB PO SCH (10:00)
[2020-08-25] MEDS: SODIUM BICARBONATE 650 MG TAB PO SCH (10:00)
[2020-08-25] MEDS: ASPirin 81 mg TAB PO SCH (10:00)
[2020-08-25 11:15] VITALS: BP 116/73
[2020-08-25] MEDS ORDERED: ONDANSETRON HCL 4 MG/2 ML VIAL IV PRN (11:45)
[2020-08-25 12:28] VITALS: BP 154/95
[2020-08-25] MEDS: LACTATED RINGER'S 1,000 ML IV SCH ×2 (14:09→21:15)
[2020-08-25] MEDS: MORPHINE SULFATE 4 MG/ML SYR/VIAL IV PRN ×3 (14:31→22:44)
[2020-08-25 16:36] VITALS: BP 133/99
[2020-08-25 22:00] VITALS: BP 137/94
[2020-08-25] MEDS: ATORVASTATIN 20 MG TAB PO SCH (22:02)
[2020-08-25] MEDS: GABAPENTIN 300 MG CAP PO SCH (22:02)
[2020-08-25] MEDS: METOPROLOL SUCCINATE XL 50 MG TAB PO SCH (22:03)
[2020-08-25 22:44] VITALS: BP 128/77
[2020-08-26 05:00] VITALS: BP 135/86
[2020-08-26] MEDS ORDERED: SODIUM CHL 0.9% 1000 ML BAG XX ONE (07:00)
[2020-08-26] MEDS: LACTATED RINGER'S 1,000 ML IV SCH ×2 (07:15→08:35)
[2020-08-26 07:17] LABS: Basophils # (auto) 0.1 10 ^3/uL (0-0.2); Basophils % (auto) 0.4 % (0.0-2.0); Eosinophils # (auto) 0.5 10 ^3/uL (0-0.8); Eosinophils % (auto) 4.3 % (0.0-7.0); Hemoglobin 8.9 g/dL (13.5-17.5); Lymphocytes % (auto) 8.1 % (10.0-50.0); Mean Corpuscular Hemoglobin 29.1 pg (28.0-32.0); Mean Corpuscular Hgb Conc. 33.1 g/dL (32.0-36.0); Mean Corpuscular Volume 87.8 fL (80.0-100.0); Monocytes # (auto) 1.8 10 ^3/uL (0-1.3); Monocytes % (auto) 14.7 % (0.0-12.0); Neutrophils # (auto) 8.8 10 ^3/uL (1.6-8.6); Neutrophils % (auto) 72.5 % (37.0-80.0); Platelet Count (auto) 280 10^3/uL (140-450); Red Blood Cells 3.07 10^6/uL (4.5-5.90); Red Cell Distribution Width 17.9 % (11.8-14.3); White Blood Cell 12.2 10^3/uL (4.4-10.8)
[2020-08-26 07:47] LABS: Potassium 5.1 mmol/L (3.5-5.1)
[2020-08-26 07:51] LABS: BUN/Creatinine Ratio 6.9
[2020-08-26] MEDS: FERROUS SULFATE 300 MG/5 ML ORAL LIQ GT SCH ×3 (08:35→18:17)
[2020-08-26] MEDS: MORPHINE SULFATE 4 MG/ML SYR/VIAL IV PRN ×2 (08:36→21:18)
[2020-08-26 09:00] VITALS: BP 116/78
[2020-08-26] MEDS: SODIUM BICARBONATE 650 MG TAB PO SCH (09:33)
[2020-08-26] MEDS: ASPirin 81 mg TAB PO SCH (09:33)
[2020-08-26] MEDS: HEPARIN SODIUM (PORCINE) 5000 UNITS/ML 1ML VIAL SC SCH ×2 (09:34→21:17)
[2020-08-26] MEDS: CHOLECALCIFEROL (VITD3) 2,000 UNIT CAP/TAB PO SCH (09:34)
[2020-08-26 13:00] VITALS: BP 113/74
[2020-08-26 17:00] VITALS: BP 112/81
[2020-08-26] MEDS ORDERED: EPOETIN ALFA-EPBX 10,000 UNIT/1ML VIAL SC ONE (21:00)
[2020-08-26] MEDS: GABAPENTIN 300 MG CAP PO SCH (21:16)
[2020-08-26] MEDS: ATORVASTATIN 20 MG TAB PO SCH (21:16)
[2020-08-26] MEDS: METOPROLOL SUCCINATE XL 50 MG TAB PO SCH (21:17)
[2020-08-26 21:42] VITALS: BP 130/78
[2020-08-26 23:15] VITALS: BP 121/93
[2020-08-26] MEDS: ACETAMINOPHEN 325 MG TAB PO PRN (23:31)
[2020-08-27 05:00] VITALS: BP 107/74
[2020-08-27] MEDS: MORPHINE SULFATE 4 MG/ML SYR/VIAL IV PRN ×4 (06:55→23:47)
[2020-08-27 07:08] LABS: Basophils # (auto) 0.1 10 ^3/uL (0-0.2); Basophils % (auto) 0.5 % (0.0-2.0); Eosinophils # (auto) 0.9 10 ^3/uL (0-0.8); Eosinophils % (auto) 7.6 % (0.0-7.0); Hematocrit 29.8 % (41.0-53.0); Hemoglobin 9.6 g/dL (13.5-17.5); Lymphocytes # (auto) 1.3 10 ^3/uL (0.4-5.4); Lymphocytes % (auto) 10.6 % (10.0-50.0); Mean Corpuscular Hemoglobin 29.2 pg (28.0-32.0); Mean Corpuscular Hgb Conc. 32.3 g/dL (32.0-36.0); Mean Corpuscular Volume 90.3 fL (80.0-100.0); Monocytes # (auto) 1.7 10 ^3/uL (0-1.3); Monocytes % (auto) 14.7 % (0.0-12.0); Neutrophils # (auto) 7.9 10 ^3/uL (1.6-8.6); Neutrophils % (auto) 66.6 % (37.0-80.0); Nucleated Red Blood Cells % 0.1 %; Platelet Count (auto) 293 10^3/uL (140-450); Red Cell Distribution Width 17.7 % (11.8-14.3); White Blood Cell 11.8 10^3/uL (4.4-10.8)
[2020-08-27 07:25] LABS: BUN/Creatinine Ratio 5.8; Calcium 8.7 mg/dL (8.5-10.1); Potassium 4.1 mmol/L (3.5-5.1)
[2020-08-27] MEDS: FERROUS SULFATE 300 MG/5 ML ORAL LIQ GT SCH (08:00)
[2020-08-27 09:00] VITALS: BP 113/87
[2020-08-27] MEDS: HEPARIN SODIUM (PORCINE) 5000 UNITS/ML 1ML VIAL SC SCH ×2 (09:36→22:45)
[2020-08-27] MEDS: CHOLECALCIFEROL (VITD3) 2,000 UNIT CAP/TAB PO SCH (09:37)
[2020-08-27] MEDS: HYDROcodone-ACET 10/325MG TAB PO PRN (09:37)
[2020-08-27] MEDS: ASPirin 81 mg TAB PO SCH (09:37)
[2020-08-27] MEDS: SODIUM BICARBONATE 650 MG TAB PO SCH (09:38)
[2020-08-27] MEDS: FERROUS SULFATE 300 MG/5 ML ORAL LIQ PO SCH ×2 (12:31→18:30)
[2020-08-27 13:00] VITALS: BP 113/79
[2020-08-27 17:00] VITALS: BP 128/75
[2020-08-27 22:00] VITALS: BP 120/83
[2020-08-27] MEDS: GABAPENTIN 300 MG CAP PO SCH (22:43)
[2020-08-27] MEDS: ATORVASTATIN 20 MG TAB PO SCH (22:43)
[2020-08-27] MEDS: METOPROLOL SUCCINATE XL 50 MG TAB PO SCH (22:44)
[2020-08-27] MEDS: LOPERAMIDE HCL 2 MG CAP PO PRN (22:45)
[2020-08-28 05:00] VITALS: BP 107/71
[2020-08-28 05:54] LABS: Basophils # (auto) 0.1 10 ^3/uL (0-0.2); Basophils % (auto) 0.6 % (0.0-2.0); Eosinophils # (auto) 0.9 10 ^3/uL (0-0.8); Eosinophils % (auto) 8.6 % (0.0-7.0); Hematocrit 26.8 % (41.0-53.0); Hemoglobin 8.9 g/dL (13.5-17.5); Lymphocytes # (auto) 1.5 10 ^3/uL (0.4-5.4); Lymphocytes % (auto) 13.9 % (10.0-50.0); Mean Corpuscular Hgb Conc. 33.1 g/dL (32.0-36.0); Mean Corpuscular Volume 87.7 fL (80.0-100.0); Monocytes # (auto) 1.3 10 ^3/uL (0-1.3); Monocytes % (auto) 12.4 % (0.0-12.0); Neutrophils # (auto) 6.9 10 ^3/uL (1.6-8.6); Neutrophils % (auto) 64.5 % (37.0-80.0); Platelet Count (auto) 332 10^3/uL (140-450); Red Blood Cells 3.05 10^6/uL (4.5-5.90); Red Cell Distribution Width 17.9 % (11.8-14.3); White Blood Cell 10.6 10^3/uL (4.4-10.8)
[2020-08-28] MEDS: MORPHINE SULFATE 4 MG/ML SYR/VIAL IV PRN ×3 (06:07→21:05)
[2020-08-28 06:13] LABS: Potassium 3.9 mmol/L (3.5-5.1)
[2020-08-28 06:19] LABS: BUN/Creatinine Ratio 6.3; Calcium 8.9 mg/dL (8.5-10.1); Magnesium 2.1 mg/dL (1.6-2.6)
[2020-08-28] MEDS ORDERED: SODIUM CHL 0.9% 1000 ML BAG XX ONE (07:00)
[2020-08-28 08:00] VITALS: BP 99/70
[2020-08-28] MEDS: FERROUS SULFATE 300 MG/5 ML ORAL LIQ PO SCH ×3 (08:00→18:00)
[2020-08-28] MEDS: HEPARIN SODIUM (PORCINE) 5000 UNITS/ML 1ML VIAL SC SCH ×2 (10:00→21:58)
[2020-08-28] MEDS: Pro-Stat SF 30ml Vanilla PO SCH (10:00)
[2020-08-28 12:00] VITALS: BP 118/81
[2020-08-28] MEDS: CHOLECALCIFEROL (VITD3) 2,000 UNIT CAP/TAB PO SCH (13:00)
[2020-08-28] MEDS: ASPirin 81 mg TAB PO SCH (13:47)
[2020-08-28 17:00] VITALS: BP 98/66
[2020-08-28] MEDS: diphenhdrAMINE HCL 12.5 MG/5 ML UD PO PRN (19:30)
[2020-08-28] MEDS ORDERED: EPOETIN ALFA-EPBX 10,000 UNIT/1ML VIAL SC ONE (21:00)
[2020-08-28] MEDS: ATORVASTATIN 20 MG TAB PO SCH (21:56)
[2020-08-28] MEDS: GABAPENTIN 300 MG CAP PO SCH (21:57)
[2020-08-28 22:00] VITALS: BP 90/47
[2020-08-28] MEDS: METOPROLOL SUCCINATE XL 50 MG TAB PO SCH (22:25)
[2020-08-29] VITALS (7 sets, daily range): BP systolic 83–108; BP diastolic 48–68
[2020-08-29] MEDS: HYDROcodone-ACET 10/325MG TAB PO PRN ×2 (01:06→13:18)
[2020-08-29] MEDS: LOPERAMIDE HCL 2 MG CAP PO PRN ×3 (03:21→13:14)
[2020-08-29] MEDS: FERROUS SULFATE 300 MG/5 ML ORAL LIQ PO SCH (08:00)
[2020-08-29] MEDS: CHOLECALCIFEROL (VITD3) 2,000 UNIT CAP/TAB PO SCH (09:12)
[2020-08-29] MEDS: ASPirin 81 mg TAB PO SCH (09:12)
[2020-08-29] MEDS: HEPARIN SODIUM (PORCINE) 5000 UNITS/ML 1ML VIAL SC SCH ×2 (09:21→22:19)
[2020-08-29] MEDS: FERROUS SULFATE 325mg EC TAB PO SCH ×3 (09:26→18:02)
[2020-08-29] MEDS: Pro-Stat SF 30ml Vanilla PO SCH (09:28)
[2020-08-29 19:29] LABS: Basophils # (auto) 0 10 ^3/uL (0-0.2); Basophils % (auto) 0.5 % (0.0-2.0); Eosinophils # (auto) 1.1 10 ^3/uL (0-0.8); Eosinophils % (auto) 10.8 % (0.0-7.0); Hematocrit 28.1 % (41.0-53.0); Hemoglobin 9.1 g/dL (13.5-17.5); Lymphocytes # (auto) 1.7 10 ^3/uL (0.4-5.4); Mean Corpuscular Hemoglobin 28.5 pg (28.0-32.0); Mean Corpuscular Hgb Conc. 32.3 g/dL (32.0-36.0); Mean Corpuscular Volume 88.2 fL (80.0-100.0); Monocytes # (auto) 1.2 10 ^3/uL (0-1.3); Monocytes % (auto) 12.6 % (0.0-12.0); Neutrophils # (auto) 5.8 10 ^3/uL (1.6-8.6); Neutrophils % (auto) 59.1 % (37.0-80.0); Platelet Count (auto) 397 10^3/uL (140-450); Red Blood Cells 3.19 10^6/uL (4.5-5.90); Red Cell Distribution Width 17.8 % (11.8-14.3); White Blood Cell 9.9 10^3/uL (4.4-10.8)
[2020-08-29 20:03] LABS: BUN/Creatinine Ratio 5.6; Calcium 8.9 mg/dL (8.5-10.1); Potassium 3.4 mmol/L (3.5-5.1)
[2020-08-29] MEDS: TACROLIMUS 1 MG CAP PO SCH (22:00)
[2020-08-29] MEDS: ATORVASTATIN 20 MG TAB PO SCH (22:17)
[2020-08-29] MEDS: GABAPENTIN 300 MG CAP PO SCH (22:18)
[2020-08-29] MEDS: METOPROLOL SUCCINATE XL 50 MG TAB PO SCH (22:30)
[2020-08-29] MEDS: MORPHINE SULFATE 4 MG/ML SYR/VIAL IV PRN (22:36)
[2020-08-30 05:04] VITALS: BP 102/65
[2020-08-30] MEDS: FERROUS SULFATE 325mg EC TAB PO SCH ×3 (08:24→18:43)
[2020-08-30 09:21] VITALS: BP 99/74
[2020-08-30] MEDS: ASPirin 81 mg TAB PO SCH (09:24)
[2020-08-30] MEDS: TACROLIMUS 1 MG CAP PO SCH ×2 (09:24→21:50)
[2020-08-30] MEDS: CHOLECALCIFEROL (VITD3) 2,000 UNIT CAP/TAB PO SCH (09:24)
[2020-08-30] MEDS: LOPERAMIDE HCL 2 MG CAP PO PRN (09:25)
[2020-08-30] MEDS: HEPARIN SODIUM (PORCINE) 5000 UNITS/ML 1ML VIAL SC SCH ×2 (09:25→21:50)
[2020-08-30] MEDS ORDERED: TACROLIMUS 1 MG CAP PO ONE (11:45)
[2020-08-30] MEDS: SEVELAMER 800 MG TAB PO SCH ×2 (11:47→18:43)
[2020-08-30 12:53] VITALS: BP 99/73
[2020-08-30] MEDS: Pro-Stat SF 30ml Vanilla PO SCH (13:02)
[2020-08-30] MEDS: HYDROcodone-ACET 10/325MG TAB PO PRN ×2 (13:03→21:15)
[2020-08-30 17:07] VITALS: BP 96/64
[2020-08-30] MEDS: METOPROLOL SUCCINATE XL 50 MG TAB PO SCH (21:19)
[2020-08-30] MEDS: GABAPENTIN 300 MG CAP PO SCH (21:50)
[2020-08-30] MEDS: ATORVASTATIN 20 MG TAB PO SCH (21:50)
[2020-08-30 22:00] VITALS: BP 116/71
[2020-08-30] MEDS: diphenhdrAMINE HCL 12.5 MG/5 ML UD PO PRN (23:10)
[2020-08-30] MEDS: MORPHINE SULFATE 4 MG/ML SYR/VIAL IV PRN (23:11)
[2020-08-31 05:03] VITALS: BP 101/57
[2020-08-31] MEDS: HYDROcodone-ACET 10/325MG TAB PO PRN ×3 (05:14→23:55)
[2020-08-31] MEDS ORDERED: SODIUM CHL 0.9% 1000 ML BAG XX ONE (07:00)
[2020-08-31 08:41] VITALS: BP 94/68
[2020-08-31] MEDS: SEVELAMER 800 MG TAB PO SCH ×3 (08:54→17:44)
[2020-08-31] MEDS: FERROUS SULFATE 325mg EC TAB PO SCH ×3 (08:54→17:43)
[2020-08-31] MEDS: Pro-Stat SF 30ml Vanilla PO SCH (10:07)
[2020-08-31] MEDS: CHOLECALCIFEROL (VITD3) 2,000 UNIT CAP/TAB PO SCH (10:07)
[2020-08-31] MEDS: ASPirin 81 mg TAB PO SCH (10:07)
[2020-08-31] MEDS: TACROLIMUS 1 MG CAP PO SCH ×2 (10:32→23:31)
[2020-08-31] MEDS: HEPARIN SODIUM (PORCINE) 5000 UNITS/ML 1ML VIAL SC SCH ×2 (10:38→23:32)
[2020-08-31 12:37] VITALS: BP 102/68
[2020-08-31 14:19] LABS: Hemoglobin 7.8 g/dL (13.5-17.5); Mean Corpuscular Hemoglobin 28.8 pg (28.0-32.0); Mean Corpuscular Hgb Conc. 32.4 g/dL (32.0-36.0); Mean Corpuscular Volume 88.9 fL (80.0-100.0); Platelet Count (auto) 408 10^3/uL (140-450); Red Cell Distribution Width 17.5 % (11.8-14.3); White Blood Cell 4.5 10^3/uL (4.4-10.8)
[2020-08-31 14:25] LABS: Basophils % (manual) 0 (0.0-2.0); Blast Cells 0; Metamyelocytes % 0; Myelocytes % 0; Promyelocytes % 0; Reactive Lymphocytes 0
[2020-08-31 14:33] LABS: BUN/Creatinine Ratio 5.6; Calcium 8.2 mg/dL (8.5-10.1)
[2020-08-31 15:05] LABS: Band Neutrophils % (manual) 1; Eosinophils % (manual) 16 (0-7); Lymphocytes % (manual) 35 (10.0-50.0); Monocytes % (manual) 5 (0-12)
[2020-08-31 17:00] VITALS: BP 143/86
[2020-08-31] MEDS ORDERED: EPOETIN ALFA-EPBX 10,000 UNIT/1ML VIAL SC ONE (21:00)
[2020-08-31 22:00] VITALS: BP 100/75
[2020-08-31] MEDS: GABAPENTIN 300 MG CAP PO SCH (23:30)
[2020-08-31] MEDS: ATORVASTATIN 20 MG TAB PO SCH (23:31)
[2020-08-31] MEDS: METOPROLOL SUCCINATE XL 50 MG TAB PO SCH (23:39)
[2020-09-01 01:30] VITALS: BP 147/84
[2020-09-01] MEDS: HYDROcodone-ACET 10/325MG TAB PO PRN ×3 (04:09→21:42)
[2020-09-01 08:19] LABS: Basophils # (auto) 0.1 10 ^3/uL (0-0.2); Hemoglobin 8.4 g/dL (13.5-17.5); Mean Corpuscular Hgb Conc. 31.5 g/dL (32.0-36.0); Monocytes # (auto) 1.3 10 ^3/uL (0-1.3); Neutrophils # (auto) 4.8 10 ^3/uL (1.6-8.6)
[2020-09-01 08:21] LABS: Eosinophils % (auto) 10.4 % (0.0-7.0); Hematocrit 26.6 % (41.0-53.0); Lymphocytes # (auto) 2.3 10 ^3/uL (0.4-5.4); Lymphocytes % (auto) 24.4 % (10.0-50.0); Mean Corpuscular Hemoglobin 28.9 pg (28.0-32.0); Mean Corpuscular Volume 91.8 fL (80.0-100.0); Monocytes % (auto) 13.5 % (0.0-12.0); Neutrophils % (auto) 50.7 % (37.0-80.0); Nucleated Red Blood Cells % 0.2 %; Platelet Count (auto) 386 10^3/uL (140-450); Red Blood Cells 2.89 10^6/uL (4.5-5.90); Red Cell Distribution Width 17.8 % (11.8-14.3); White Blood Cell 9.4 10^3/uL (4.4-10.8)
[2020-09-01 08:45] LABS: Calcium 8.9 mg/dL (8.5-10.1); Potassium 3.2 mmol/L (3.5-5.1)
[2020-09-01 09:00] VITALS: BP 105/66
[2020-09-01] MEDS: SEVELAMER 800 MG TAB PO SCH ×4 (09:11→18:00)
[2020-09-01] MEDS: FERROUS SULFATE 325mg EC TAB PO SCH ×3 (09:11→19:07)
[2020-09-01] MEDS: CHOLECALCIFEROL (VITD3) 2,000 UNIT CAP/TAB PO SCH (09:11)
[2020-09-01] MEDS: ASPirin 81 mg TAB PO SCH (09:11)
[2020-09-01] MEDS: HEPARIN SODIUM (PORCINE) 5000 UNITS/ML 1ML VIAL SC SCH ×2 (09:12→22:21)
[2020-09-01] MEDS: TACROLIMUS 1 MG CAP PO SCH ×2 (09:14→21:47)
[2020-09-01] MEDS: Pro-Stat SF 30ml Vanilla PO SCH (10:50)
[2020-09-01 13:00] VITALS: BP 98/75
[2020-09-01] MEDS ORDERED: POTASSIUM CHL 20 Meq TABLET PO ONE ×2 (13:15→16:00)
[2020-09-01 17:00] VITALS: BP 113/82
[2020-09-01] MEDS: ATORVASTATIN 20 MG TAB PO SCH (21:42)
[2020-09-01] MEDS: GABAPENTIN 300 MG CAP PO SCH (21:43)
[2020-09-01] MEDS: METOPROLOL SUCCINATE XL 50 MG TAB PO SCH (21:47)
[2020-09-01 22:00] VITALS: BP 135/92
[2020-09-02 05:21] VITALS: BP 110/82
[2020-09-02] MEDS ORDERED: SODIUM CHL 0.9% 1000 ML BAG XX ONE (07:00)
[2020-09-02 07:50] LABS: Basophils # (auto) 0.1 10 ^3/uL (0-0.2)
[2020-09-02 07:52] LABS: Basophils % (auto) 1.1 % (0.0-2.0); Eosinophils # (auto) 0.8 10 ^3/uL (0-0.8); Eosinophils % (auto) 8.2 % (0.0-7.0); Hematocrit 28.7 % (41.0-53.0); Hemoglobin 9.5 g/dL (13.5-17.5); Lymphocytes # (auto) 2.5 10 ^3/uL (0.4-5.4); Lymphocytes % (auto) 25.3 % (10.0-50.0); Mean Corpuscular Hemoglobin 29.1 pg (28.0-32.0); Mean Corpuscular Hgb Conc. 33.1 g/dL (32.0-36.0); Mean Corpuscular Volume 87.9 fL (80.0-100.0); Monocytes % (auto) 10.2 % (0.0-12.0); Neutrophils # (auto) 5.5 10 ^3/uL (1.6-8.6); Neutrophils % (auto) 55.2 % (37.0-80.0); Nucleated Red Blood Cells % 0.1 %; Platelet Count (auto) 555 10^3/uL (140-450); Red Blood Cells 3.26 10^6/uL (4.5-5.90); Red Cell Distribution Width 17.8 % (11.8-14.3)
[2020-09-02] MEDS: FERROUS SULFATE 325mg EC TAB PO SCH ×3 (08:34→18:00)
[2020-09-02] MEDS: SEVELAMER 800 MG TAB PO SCH ×3 (08:34→18:00)
[2020-09-02 09:00] VITALS: BP 135/88
[2020-09-02] MEDS: Pro-Stat SF 30ml Vanilla PO SCH (10:00)
[2020-09-02] MEDS: ASPirin 81 mg TAB PO SCH (11:10)
[2020-09-02] MEDS: TACROLIMUS 1 MG CAP PO SCH (11:10)
[2020-09-02] MEDS: CHOLECALCIFEROL (VITD3) 2,000 UNIT CAP/TAB PO SCH (11:11)
[2020-09-02] MEDS: HEPARIN SODIUM (PORCINE) 5000 UNITS/ML 1ML VIAL SC SCH (12:04)
[2020-09-02 12:47] VITALS: BP 103/81
[2020-09-02 16:35] VITALS: BP 94/71
[2020-09-02] MEDS: HYDROcodone-ACET 10/325MG TAB PO PRN (17:56)
[2020-09-02 18:42] VITALS: BP 103/81
[2020-09-02] MEDS ORDERED: EPOETIN ALFA-EPBX 10,000 UNIT/1ML VIAL SC ONE (21:00)
== END 2020-09-02 20:45 | disposition home health service (06) | DRG 308 ==
LOC: EDUNIT# 21:29 → EDBD 21:29 → ER 21:32 → TELE 08-20 10:13 → TELE-EAST 08-20 12:38 → DOU IN ICU 08-23 02:06 → TELE-EAST 08-23 21:46
PROVIDERS: ADMIT Internal Medicine; ATTEND Internal Medicine
PROC: 5A1D70Z Performance of Urinary Filtration, Intermittent, Less than 6 Hours Per Day (ICD-10-PCS; 2020-08-21)
PROC: 4A023N7 Measurement of Cardiac Sampling and Pressure, Left Heart, Percutaneous Approach (ICD-10-PCS; 2020-08-24)
PROC: B211YZZ Fluoroscopy of Multiple Coronary Arteries using Other Contrast (ICD-10-PCS; 2020-08-24)
PROC: B215YZZ Fluoroscopy of Left Heart using Other Contrast (ICD-10-PCS; 2020-08-24)
PROC: 5A1D70Z Performance of Urinary Filtration, Intermittent, Less than 6 Hours Per Day (ICD-10-PCS; 2020-08-24)
PROC: 30233N1 Transfusion of Nonautologous Red Blood Cells into Peripheral Vein, Percutaneous Approach (ICD-10-PCS; 2020-08-25)
PROC: 0QS706Z Reposition Left Upper Femur with Intramedullary Internal Fixation Device, Open Approach (ICD-10-PCS; principal; 2020-08-25 08:26)
PROC: 5A1D70Z Performance of Urinary Filtration, Intermittent, Less than 6 Hours Per Day (ICD-10-PCS; 2020-08-26)
DX: S72.142A Displaced intertrochanteric fracture of left femur, initial encounter for closed fracture (principal); I13.2 Hypertensive heart and chronic kidney disease with heart failure and with stage 5 chronic kidney disease, or end stage renal disease; E11.22 Type 2 diabetes mellitus with diabetic chronic kidney disease; E11.51 Type 2 diabetes mellitus with diabetic peripheral angiopathy without gangrene; I42.9 Cardiomyopathy, unspecified; E66.01 Morbid (severe) obesity due to excess calories; Z68.41 Body mass index [BMI] 40.0-44.9, adult; I95.9 Hypotension, unspecified; I50.9 Heart failure, unspecified; N18.6 End stage renal disease; S42.345A Nondisplaced spiral fracture of shaft of humerus, left arm, initial encounter for closed fracture; E87.5 Hyperkalemia; Z89.611 Acquired absence of right leg above knee; W05.0XXA Fall from non-moving wheelchair, initial encounter; Z99.2 Dependence on renal dialysis; I16.0 Hypertensive urgency; D63.1 Anemia in chronic kidney disease; Z99.3 Dependence on wheelchair; Z89.512 Acquired absence of left leg below knee; D72.829 Elevated white blood cell count, unspecified; E88.09 Other disorders of plasma-protein metabolism, not elsewhere classified; G89.29 Other chronic pain; I25.10 Atherosclerotic heart disease of native coronary artery without angina pectoris; I35.0 Nonrheumatic aortic (valve) stenosis; M85.80 Other specified disorders of bone density and structure, unspecified site; Z79.82 Long term (current) use of aspirin; Z82.3 Family history of stroke; Z82.49 Family history of ischemic heart disease and other diseases of the circulatory system; Z87.11 Personal history of peptic ulcer disease; Z89.511 Acquired absence of right leg below knee; Z94.0 Kidney transplant status; M10.9 Gout, unspecified; Z98.61 Coronary angioplasty status; Z20.822 Contact with and (suspected) exposure to COVID-19; Y93.89 Activity, other specified; Y92.89 Other specified places as the place of occurrence of the external cause; Y99.8 Other external cause status; I35.1 Nonrheumatic aortic (valve) insufficiency
CPT/HCPCS: 36415; 70450; 71045; 72170; 72192; 73030; 73501; 76000; 78452; 80048; 80053; 81001; 83735; 85007; 85025; 85027; 85610; 85730; 86850; 86900; 86901; 86920; 87040; 87081; 87086; 87426; 90935; 93005; 93017; 93306; 96374; 97110; 97530; 99152; 99153; 99291; A4565; C1713; G0378; J0153; J0690; J1642; J2250; J2543; J3490; J7507; Q9967

== ENCOUNTER 2021-11-12 20:08 | Inpatient (IN) | payer MEDICAID ==
[~2021-11-12] VITALS: Ht 165.1 cm; Wt 59.0 kg
[~2021-11-12 20:08] MED LIST changes: -METO-169 PO; +METO-289 PO
[2021-11-12 20:13] VITALS: BP 222/139
[2021-11-12] MEDS ORDERED: FUROSEMIDE 40 MG/4 ML VIAL IV ONE (20:45)
[2021-11-12] MEDS ORDERED: NITROGLYCERIN 50MG/250ML 250 ML IV ONE (20:45)
[2021-11-12 21:07] LABS: Basophils # (auto) 0.1 10 ^3/uL (0-0.2); Basophils % (auto) 0.8 % (0.0-2.0); Eosinophils # (auto) 0.6 10 ^3/uL (0-0.8); Eosinophils % (auto) 5.1 % (0.0-7.0); Hematocrit 29.3 % (41.0-53.0); Hemoglobin 8.8 g/dL (13.5-17.5); Lymphocytes # (auto) 4.4 10 ^3/uL (0.4-5.4); Lymphocytes % (auto) 40.1 % (10.0-50.0); Mean Corpuscular Hemoglobin 25.3 pg (28.0-32.0); Mean Corpuscular Volume 84.4 fL (80.0-100.0); Monocytes % (auto) 8.9 % (0.0-12.0); Neutrophils % (auto) 45.1 % (37.0-80.0); Red Blood Cells 3.47 10^6/uL (4.5-5.90); Red Cell Distribution Width 17.8 % (11.8-14.3)
[2021-11-12 21:23] LABS: Albumin 3.2 g/dL (3.4-5.0); Calcium 7.5 mg/dL (8.5-10.1); Potassium 3.4 mmol/L (3.5-5.1)
[2021-11-12 21:26] LABS: BUN/Creatinine Ratio 4.9; Bilirubin, Total 0.8 mg/dL (0.2-1.0); Total Protein 7.8 g/dL (6.4-8.2)
[2021-11-12 22:05] VITALS: BP 146/104
[2021-11-12] MEDS ORDERED: TIZANIDINE HYDROCHLORIDE 4 MG PO PRN (22:30)
[2021-11-12] MEDS ORDERED: ACETAMINOPHEN 325 MG TAB PO PRN (22:30)
[2021-11-12] MEDS ORDERED: ONDANSETRON HCL 4 MG/2 ML VIAL IV PRN (22:30)
[2021-11-12] MEDS ORDERED: DEXTROSE (50%) 50ML SYRG IV PRN (22:30)
[2021-11-12] MEDS ORDERED: MORPHINE SULFATE INJ 2 MG/ml SYRG IV PRN (22:30)
[2021-11-12] MEDS ORDERED: DOCUSATE SOD 100 MG CAP PO PRN (22:30)
[2021-11-12] MEDS ORDERED: ASPirin-EC 325mg tab PO ONE (22:45)
[2021-11-12 23:25] LABS: Urine Bacteria NONE SEEN /hpf (None Seen); Urine Blood Negative /uL (Negative); Urine Specific Gravity 1.008 (1.001-1.035); Urine WBC 1 /hpf (0 - 3)
[2021-11-12 23:35] LABS: Alcohol, Urine < 3.0 mg/dL (0-10); Barbiturate Scree,Urine NEGATIVE (NEGATIVE); Cannabinoid Screen, Urine NEGATIVE (NEGATIVE); Cocaine Screen, Urine NEGATIVE (NEGATIVE); Opiate Scree,Urine POSITIVE (NEGATIVE); Phencyclidine Screen, Urine NEGATIVE (NEGATIVE)
[2021-11-12 23:43] LABS: Amphetamine Screen, Urine NEGATIVE (NEGATIVE); Benzodiazephine Screen, Urine NEGATIVE (NEGATIVE)
[2021-11-13] MEDS ORDERED: oxyCODONE ER 20 MG TAB PO SCH
[2021-11-13] MEDS ORDERED: NITROGLYCERIN 0.4 MG SL TAB SL PRN (00:15)
[2021-11-13] MEDS ORDERED: MORPHINE SULFATE INJ 2 MG/ml SYRG IV PRN (00:15)
[2021-11-13 03:18] VITALS: BP 124/88
[2021-11-13] MEDS: HYDROcodone-ACET 5/325MG TAB PO PRN ×3 (05:33→17:50)
[2021-11-13] MEDS: SUCRALFATE 1 GM TAB PO SCH ×5 (05:33→23:28)
[2021-11-13] MEDS: diphenhdrAMINE HCL 25 MG CAP PO PRN ×2 (06:02→22:14)
[2021-11-13] MEDS: ACCU-CHEK COMFORT CURVE STRIP VI SCH ×4 (06:54→21:36)
[2021-11-13] MEDS: InsuLIN REG 1unit/0.01ml Soln (100units/ml) SC SCH ×4 (07:00→21:35)
[2021-11-13 07:18] LABS: Calcium 7.3 mg/dL (8.5-10.1)
[2021-11-13 07:21] LABS: BUN/Creatinine Ratio 5.1
[2021-11-13 07:30] LABS: Basophils # (auto) 0.1 10 ^3/uL (0-0.2); Basophils % (auto) 0.6 % (0.0-2.0); Eosinophils # (auto) 0.2 10 ^3/uL (0-0.8); Lymphocytes # (auto) 2.1 10 ^3/uL (0.4-5.4); Neutrophils # (auto) 4.6 10 ^3/uL (1.6-8.6)
[2021-11-13 07:32] LABS: Eosinophils % (auto) 2.3 % (0.0-7.0); Hematocrit 26.4 % (41.0-53.0); Hemoglobin 8.1 g/dL (13.5-17.5); Lymphocytes % (auto) 24.9 % (10.0-50.0); Mean Corpuscular Hemoglobin 26.7 pg (28.0-32.0); Mean Corpuscular Hgb Conc. 30.9 g/dL (32.0-36.0); Mean Corpuscular Volume 86.3 fL (80.0-100.0); Monocytes # (auto) 1.4 10 ^3/uL (0-1.3); Monocytes % (auto) 16.6 % (0.0-12.0); Neutrophils % (auto) 55.6 % (37.0-80.0); Red Blood Cells 3.05 10^6/uL (4.5-5.90); Red Cell Distribution Width 17.8 % (11.8-14.3); White Blood Cell 8.3 10^3/uL (4.4-10.8)
[2021-11-13] MEDS: SODIUM BICARBONATE 650 MG TAB PO SCH (09:35)
[2021-11-13] MEDS: PANTOPRAZOLE 40 MG/10 ML VIAL INJ IV SCH (09:35)
[2021-11-13] MEDS: ASPirin-EC 81 mg tab PO SCH (09:35)
[2021-11-13] MEDS: ATORVASTATIN 20 MG TAB PO SCH (09:36)
[2021-11-13] MEDS: LISINOPRIL 20 MG TAB PO SCH (09:37)
[2021-11-13] MEDS: TACROLIMUS 1 MG CAP PO SCH ×2 (09:38→21:33)
[2021-11-13] MEDS: CLOPIDOGREL BISULFATE 75 MG TAB PO SCH (12:11)
[2021-11-13 14:30] VITALS: BP 128/89
[2021-11-13 16:00] VITALS: BP 125/87
[2021-11-13] MEDS: GABAPENTIN 300 MG CAP PO SCH (21:22)
[2021-11-13] MEDS: METOPROLOL SUCCINATE XL 50 MG TAB PO SCH (21:35)
[2021-11-13 22:00] VITALS: BP 135/90
[2021-11-14 05:00] VITALS: BP 148/91
[2021-11-14] MEDS: SUCRALFATE 1 GM TAB PO SCH ×4 (06:12→23:17)
[2021-11-14] MEDS: ACCU-CHEK COMFORT CURVE STRIP VI SCH ×4 (06:13→22:00)
[2021-11-14] MEDS: InsuLIN REG 1unit/0.01ml Soln (100units/ml) SC SCH ×4 (06:13→22:00)
[2021-11-14] MEDS ORDERED: SODIUM CHL 0.9% 1000 ML BAG XX ONE (07:00)
[2021-11-14 08:00] VITALS: BP 158/99
[2021-11-14] MEDS: LISINOPRIL 20 MG TAB PO SCH (10:38)
[2021-11-14] MEDS: SODIUM BICARBONATE 650 MG TAB PO SCH (10:39)
[2021-11-14] MEDS: ATORVASTATIN 20 MG TAB PO SCH (10:40)
[2021-11-14] MEDS: ASPirin-EC 81 mg tab PO SCH (10:40)
[2021-11-14] MEDS: PANTOPRAZOLE 40 MG/10 ML VIAL INJ IV SCH (10:40)
[2021-11-14] MEDS: CLOPIDOGREL BISULFATE 75 MG TAB PO SCH (10:40)
[2021-11-14] MEDS: HYDROcodone-ACET 5/325MG TAB PO PRN (11:11)
[2021-11-14] MEDS: TACROLIMUS 1 MG CAP PO SCH ×2 (11:11→21:27)
[2021-11-14 12:00] VITALS: BP 159/99
[2021-11-14 16:00] VITALS: BP 133/97
[2021-11-14] MEDS: GABAPENTIN 300 MG CAP PO SCH (21:27)
[2021-11-14] MEDS: METOPROLOL SUCCINATE XL 50 MG TAB PO SCH (21:28)
[2021-11-15 05:00] VITALS: BP 157/99
[2021-11-15] MEDS: SUCRALFATE 1 GM TAB PO SCH ×2 (05:47→12:20)
[2021-11-15] MEDS: InsuLIN REG 1unit/0.01ml Soln (100units/ml) SC SCH ×2 (05:47→11:30)
[2021-11-15] MEDS: ACCU-CHEK COMFORT CURVE STRIP VI SCH ×2 (05:48→11:30)
[2021-11-15 08:00] VITALS: BP 121/78
[2021-11-15] MEDS: CLOPIDOGREL BISULFATE 75 MG TAB PO SCH (09:50)
[2021-11-15] MEDS: ASPirin-EC 81 mg tab PO SCH (09:50)
[2021-11-15] MEDS: SODIUM BICARBONATE 650 MG TAB PO SCH (09:50)
[2021-11-15] MEDS: PANTOPRAZOLE 40 MG/10 ML VIAL INJ IV SCH (09:50)
[2021-11-15] MEDS: ATORVASTATIN 20 MG TAB PO SCH (09:53)
[2021-11-15] MEDS: TACROLIMUS 1 MG CAP PO SCH (09:53)
[2021-11-15 12:00] VITALS: BP 139/88
[2021-11-15] MEDS: HYDROcodone-ACET 5/325MG TAB PO PRN (12:21)
[2021-11-15] MEDS ORDERED: ISOS10TA45 PO (13:43)
[2021-11-15] MEDS ORDERED: CLOP75TA70 PO (13:43)
[2021-11-15] MEDS ORDERED: RANO500T2 PO (13:43)
[2021-11-15 16:00] VITALS: BP 147/89
[2021-11-15 16:02] VITALS: BP 154/98
[2021-11-15] MEDS: LISINOPRIL 20 MG TAB PO SCH (16:04)
== END 2021-11-15 17:40 | disposition home health service (06) | DRG 190 ==
LOC: ER 20:08 → EDBD 20:08 → OVERFLOW 22:25 → TELE 11-13 00:05 → TELE-EAST 11-13 12:14
PROVIDERS: ADMIT Hospitalist; ATTEND Hospitalist
PROC: 5A09357 Assistance with Respiratory Ventilation, Less than 24 Consecutive Hours, Continuous Positive Airway Pressure (ICD-10-PCS; 2021-11-12)
PROC: 5A1D70Z Performance of Urinary Filtration, Intermittent, Less than 6 Hours Per Day (ICD-10-PCS; principal; 2021-11-15)
DX: I21.4 Non-ST elevation (NSTEMI) myocardial infarction (principal); I13.2 Hypertensive heart and chronic kidney disease with heart failure and with stage 5 chronic kidney disease, or end stage renal disease; N18.6 End stage renal disease; E11.40 Type 2 diabetes mellitus with diabetic neuropathy, unspecified; D64.9 Anemia, unspecified; E78.5 Hyperlipidemia, unspecified; I73.9 Peripheral vascular disease, unspecified; G89.4 Chronic pain syndrome; I50.9 Heart failure, unspecified; I25.10 Atherosclerotic heart disease of native coronary artery without angina pectoris; M10.9 Gout, unspecified; K21.9 Gastro-esophageal reflux disease without esophagitis; Z89.611 Acquired absence of right leg above knee; Z87.11 Personal history of peptic ulcer disease; Z90.49 Acquired absence of other specified parts of digestive tract; Z89.512 Acquired absence of left leg below knee; Z99.2 Dependence on renal dialysis; Z20.822 Contact with and (suspected) exposure to COVID-19; Z79.84 Long term (current) use of oral hypoglycemic drugs
CPT/HCPCS: 36415; 71045; 80048; 80053; 80061; 80307; 81001; 82962; 83036; 83880; 84484; 85025; 87081; 90935; 93005; 94660; 96374; 99291; C9113; G0378; J7507